=== PATIENT | female | born 1960 | race African-American/Black ===

== ENCOUNTER 2020-03-11 15:20 | Emergency (ER) | payer OTHER, SELFPAY ==
--- NOTE | 2020-03-11 | CT_ITS ---
PROCEDURE: CT ABDOMEN PELVIS WO/W CON CLINICAL INDICATION: ABD PAIN Abdominal, left upper quadrant COMPARISON: No exams were available for comparison TECHNIQUE: IV Contrast: 75ML OPTIRAY 350 Oral Contrast 20ml Gastroview Axial images obtained with sagittal and coronal reformats. All CT scans at the facility use one or more dose reduction, viz: automated exposure control, ma/kV adjustment per patient size (including targeted exams where dose is matched to indication, i.e. head), or iterative reconstruction technique. FINDINGS: LOWER THORAX: No acute finding ABDOMEN & PELVIS: There is mildly prominent right hepatic lobe measuring 23 cm cephalad caudad. No focal liver lesion is evident. Gallbladder, spleen, pancreas, adrenal glands, and kidneys have an unremarkable appearance. No intestinal obstruction or free air. No evidence of appendicitis or diverticulitis. There are few scattered colonic diverticula.. No acute bony anomalies. IMPRESSION: 1. No acute finding. 2. Mild hepatomegaly 3. Scattered colonic diverticula. No evidence of diverticulitis. Dictated by: Rc Lewis MD 03/12/2020 11:11 Electronically signed by Rc Lewis MD in [place] 03/12/2020 11:11
--- NOTE | 2020-03-11 15:42 | XR_ITS ---
PROCEDURE: XR RIBS LT MIN 3V W CXR1V CLINICAL INDICATION: pain Left-sided chest pain, smoker COMPARISON: CT ANGIO CHEST from 03/11/2020 FINDINGS: Unremarkable cardiovascular structures. There is evidence of old granulomatous disease. Minimal atelectatic or fibrotic changes are present in the left lower lung zone. Multiple views of the left ribs show no acute finding. IMPRESSION: No acute findings. Dictated by: Rc Lewis MD 03/12/2020 05:43 Electronically signed by Rc Lewis MD in [place] 03/12/2020 05:43
[2020-03-11 15:49] VITALS: BP 206/114; PULSE 85; RESP 19; TEMP 36.8; O2SAT 97; BMI 34.7
--- NOTE | 2020-03-11 15:54 | HMH.EDUTC ---
[facility] [place] Condition on Discharge: Good Time of Disposition: 16:50 <LopezJuanita turner E - Last Filed: 03/11/20 16:51> Condition on Discharge: Good <Kvng Ojeda - Last Filed: 03/11/20 19:12> Clinical Impression: Pain, Granuloma due to infection Disposition: Home, Self-Care Referrals: Merry Santana PA [Primary Care Provider] - As needed Medical Decision Making - John Inquiry Pt receiving controlled substance: No John was queried for this patient: No - Radiology Data #1 Image(s): Chest, Other (left ribs) Image Reviewed: Yes I reviewed the patient's radiology image w/the ED provider - Reevaluation(s) Time: 16:10 <LopezMagy - Last Filed: 03/11/20 16:51> - Lab Data Result diagrams: 03/11/20 17:00 03/11/20 17:00 - CT Data CT Scan: Chest Time Received: 19:00 Preliminary Findings: Abnormal (Patient has granuloma negative for neoplasm or any sort of viral or bacterial pathology) <Kvng Ojeda - Last Filed: 03/11/20 19:12> Vital Signs: 03/11/20 15:49 03/11/20 16:51 Temperature 98.2 F Temperature Source Oral Pulse Rate [Radial] 85 80 Respiratory Rate 19 16 Blood Pressure [Right Arm] 206/114 H Blood Pressure Mean [Right Arm] 144 Blood Pressure Source [Right Arm] Automatic Cuff Blood Pressure Position [Right Arm] Sitting 02 Sat by Pulse Oximetry 97 100 Oxygen Delivery Method Room Air - Lab Data Lab Results 03/11/20 17:00: Urine Color Yellow, Urine Appearance Clear, Urine pH 6.0, Ur Specific Mulga >= 1.030, Urine Protein Negative, Urine Glucose (UA) Negative, Urine Ketones Negative, Urine Blood Negative, Urine Nitrate Negative, Urine Bilirubin Negative, Urine Urobilinogen 0.2, Ur Leukocyte Esterase Negative, Urine WBC Occasional, Ur Squamous Epith Cells 10-20, Amorphous Sediment Trace, Urine Mucus Trace 03/11/20 17:00: WBC 6.8, RBC 4.43, Hgb 14.7, Hct 42.6, MCV 96.2, MCH 33.2 H, MCHC 34.5, RDW 14.6, Plt Count 200, MPV 10.0, Neut % (Auto) 56.7, Lymph % (Auto) 31.2, Sheridan % (Auto) 5.2, Eos % (Auto) 4.6, Baso % (Auto) 2.3 H, Neut # (Auto) 3.9, Lymph # (Auto) 2.1, Sheridan # (Auto) 0.4, Eos # (Auto) 0.3, Baso # (Auto) 0.2 03/11/20 17:00: Sodium 140, Potassium 4.8, Chloride 101, Carbon Dioxide 29, Anion Gap 14.8, BUN 23 H, Creatinine 0.80, Estimated Creat Clear 124, Estimated GFR 73, Est GFR ( Amer) 89, Glucose 95, Calcium 10.1, Total Bilirubin 0.7, AST 53 H, ALT 32, Alkaline Phosphatase 58, Total Protein 8.4 H, Albumin 4.6, Globulin 3.8 H, Albumin/Globulin Ratio 1.2 Orders (Tests/Meds): ED MEDICATIONS Discontinued Medications Generic Name Dose Route Start Last Admin Trade Name Freq PRN Reason Stop Dose Admin Ioversol 70 ml 03/11/20 18:14 03/11/20 18:15 Rad-Optiray 350 100ml Vial IV 03/11/20 18:15 70 ml ONCE ONE Administration Protocol Sodium Chloride 50 ml 03/11/20 18:14 03/11/20 18:15 Rad-Ns 50ml Vial IV 03/11/20 18:15 50 ml ONCE ONE Administration Sodium Chloride 10 ml 03/11/20 18:14 03/11/20 18:15 Rad-Saline Flush 10ml Syringe IV 03/11/20 18:15 10 ml ONCE ONE Administration ORDERS Category Date Time Status CT abdomen pelvis w con Stat Cat Scan 03/11/20 17:[address] abdomen pelvis wo con Stat Cat Scan 03/11/20 17:[address] angio chest Stat Cat Scan 03/11/20 17:[address] chest wo con Stat Cat Scan 03/11/20 17:00 Taken XR ribs LT min 3V w CXR1V Stat Exams 03/11/20 15:42 Taken - Radiology Data #1 mass noted patient to be sent to ER for CT of chest and further evaluation (Juanita Lopez) - Reevaluation(s) Reevaluation #1: Patient educated on importance of keeping appointments with PCP and taking medication for HTN patient educated that uncontrolled HTN can lead to stroke, DC and even . Patient verbalized understanding (Juanita Lopez) Medical Decision Narrative: Patient xray complete, upon looking at xray noticed suspicious area patient was discussed with Dr Ojeda and he viewed xray a
[2020-03-11 16:51] VITALS: PULSE 80; RESP 16; O2SAT 100; BMI 34.7
--- NOTE | 2020-03-11 17:00 | CT_ITS ---
PROCEDURE: CT ANGIO CHEST CLINCIAL INDICATION: pain Left-sided chest, pain under the breast COMPARISON: No exams were available for comparison TECHNIQUE: IV Contrast: 70ML OPTIRAY 350 Axial images obtained with sagittal and coronal reformats. All CT scans at the facility use one or more dose reduction, viz: automated exposure control, ma/kV adjustment per patient size (including targeted exams where dose is matched to indication, i.e. head), or iterative reconstruction technique. FINDINGS: HEART AND MEDIASTINAL STRUCTURES: No evidence of pulmonary embolus, aortic aneurysm, or dissection. There is some minimal calcification of the coronary arteries. LUNGS AND PLEURAL SPACES: Calcified granuloma right lower lobe with mild atelectatic or fibrotic change in the lingula.. Calcified nodes are present in the subcarinal region. Hyperinflation with attenuation of the peripheral pulmonary vessels suggesting COPD/small airway disease BONY STRUCTURES: No acute bony abnormalities apparent. UPPER ABDOMEN: Unremarkable. ADDITIONAL FINDINGS: No other significant abnormalities. IMPRESSION: 1. No acute finding. No evidence of pulmonary embolus. 2. COPD/small airway disease with chronic changes Dictated by: Rc Lewis MD 03/12/2020 10:59 Electronically signed by Rc Lewis MD in [place] 03/12/2020 10:59
--- NOTE | 2020-03-11 17:00 | CT_ITS ---
PROCEDURE: CT CHEST WO CON CLINICAL INDICATION: pain Left-sided chest pain, pain under left breast COMPARISON: CT ANGIO CHEST from 03/11/2020 TECHNIQUE: Axial images obtained with sagittal and coronal reformats. All CT scans at the facility use one or more dose reduction, viz: automated exposure control, ma/kV adjustment per patient size (including targeted exams where dose is matched to indication, i.e. head), or iterative reconstruction technique. FINDINGS: HEART AND MEDIASTINAL STRUCTURES: Unremarkable. LUNGS AND PLEURAL SPACES: Old granulomatous disease. No lobar consolidation or collapse. Minimal fibrotic or atelectatic changes in the lingula. BONY STRUCTURES: No acute bony abnormalities apparent. UPPER ABDOMEN: Unremarkable. ADDITIONAL FINDINGS: No other significant abnormalities. IMPRESSION: No acute finding Dictated by: Rc Lewis MD 03/12/2020 10:38 Electronically signed by Rc Lewis MD in [place] 03/12/2020 10:38
[2020-03-11 17:07] LABS: Microscopic, Urine URINE MICROSCOPIC (MICROSCOPIC)
[2020-03-11 17:10] LABS: Basophils # 0.2 K/mm3 (0-0.2); Basophils % 2.3 % (0.1-2.0); Eosinophils # 0.3 K/mm3 (0.0-0.4); Eosinophils % 4.6 % (0.1-12.0); Hematocrit 42.6 % (37.0-47.0); Hemoglobin 14.7 g/dL (12.2-16.2); Lymphocytes # 2.1 K/mm3 (0.7-4.5); Lymphocytes % 31.2 % (10-50); Mean Corpuscular HGB Conc 34.5 g/dL (31.8-35.4); Mean Corpuscular Hemoglobin 33.2 pg (27.0-31.2); Mean Corpuscular Volume 96.2 fl (81-99); Monocytes # 0.4 K/mm3 (0.1-1.0); Monocytes % 5.2 % (1.7-9.3); Neutrophils # 3.9 K/mm3 (1.8-7.8); Neutrophils % 56.7 % (37.0-80.0); Platelet Count 200 K/mm3 (142-424); Red Blood Count 4.43 M/mm3 (4.20-5.40); Red Cell Distribution Width 14.6 % (11.5-17.5); White Blood Count 6.8 K/mm3 (4.8-10.8)
[2020-03-11 17:26] LABS: Appearance,Urine CLEAR (Clear); Bilirubin,Urine Negative (Negative); Blood, Urine Negative (Negative); Chloride 101 mmol/L (98-107); Color,Urine YELLOW (Yellow); Glucose,Urine (UA) Negative (Negative); Ketones,Urine Negative (Negative); Leukocyte Esterase,Urine Negative (Negative); Nitrate,Urine Negative (Negative); Protein,Urine Negative (Negative); Sodium 140 mmol/L (136-145); Specific Gravity, Urine >= 1.030 (1.005-1.030); Urobilinogen,Urine 0.2 EU/dl (0.2)
[2020-03-11 17:27] LABS: Potassium 4.8 mmoL/L (3.5-5.1)
[2020-03-11 17:29] LABS: Alanine Aminotransferase 32 U/L (12-78); Albumin Level 4.6 g/dl (3.5-5.0); Albumin/Globulin Ratio 1.2 (1.1-1.8); Alkaline Phosphatase 58 U/L (38-126); Anion Gap 14.8 mEq/L (5-15); Aspartate Amino Transferase 53 U/L (14-36); Bilirubin,Total 0.7 mg/dl (0.2-1.3); Blood Urea Nitrogen 23 mg/dl (7-17); Carbon Dioxide 29 mmol/L (22.0-30.0); Creatinine Clearance Estimated 124 mL/min (50-200); Estimated Glomerular Filt Rate 73 ml/min (>60); GFR (African American) 89 ML/MIN (>60); Globulin 3.8 g/dL (1.3-3.2); Total Protein,Serum 8.4 g/dl (6.3-8.2)
[2020-03-11 17:30] LABS: Amorphous Sediment,Urine Trace /lpf; Calcium 10.1 mg/dl (8.4-10.2); Glucose 95 mg/dl (74-100); Mucus,Urine Trace /lpf; WBC,Urine Occasional #/hpf (0-3)
[2020-03-11 19:29] VITALS: BP 192/97; PULSE 80; RESP 16; TEMP 36.8; O2SAT 97
== END 2020-03-11 19:31 | disposition home or self-care (01) ==
LOC: UTC 16:19 → ER 16:46
PROVIDERS: Emergency Provider Family Medicine; PCP Physician Assistant
DX: R07.89 Other chest pain (principal); F17.210 Nicotine dependence, cigarettes, uncomplicated
CPT/HCPCS: 71101; 71250; 71275; 74176; 74177; 74178; 80053; 81001; 85025; 99283; Q9967

== ENCOUNTER → 2020-11-20 14:50 | Outpatient (CLI) | payer OTHER, SELFPAY ==
[2020-11-22 11:37] LABS: Covid-19 Nasal PCR Sendout P&C NEGATIVE
== END ==
PROVIDERS: PCP Physician Assistant; Visit Provider Nurse Practitioner Family
DX: Z11.52 Encounter for screening for COVID-19 (principal)
CPT/HCPCS: U0004

== ENCOUNTER → 2021-08-05 10:07 | Outpatient (CLI) | payer BC, SELFPAY ==
[2021-08-05 11:55] LABS: Anion Gap 14.5 mEq/L (5-15); Blood Urea Nitrogen 41 mg/dl (7-17); Calcium 10.3 mg/dl (8.4-10.2); Carbon Dioxide 27 mmol/L (22.0-30.0); Chloride 104 mmol/L (98-107); Estimated Glomerular Filt Rate 35 ml/min (>60); GFR (African American) 43 ML/MIN (>60); Glucose 106 mg/dl (74-100); Potassium 4.5 mmoL/L (3.5-5.1); Sodium 141 mmol/L (136-145)
== END ==
PROVIDERS: Visit Provider Physician Assistant
DX: R79.89 Other specified abnormal findings of blood chemistry (principal)
CPT/HCPCS: 36415; 80048

== ENCOUNTER → 2021-09-13 10:47 | Outpatient (CLI) | payer BC, SELFPAY | LOC: SL 10:49 | PROVIDERS: PCP Physician Assistant; Visit Provider Physician Assistant | DX: G47.33 Obstructive sleep apnea (adult) (pediatric) (principal); G47.10 Hypersomnia, unspecified; R06.83 Snoring | CPT/HCPCS: G0399 ==

== ENCOUNTER → 2021-10-14 11:05 | Outpatient (POV) | payer BC, SELFPAY ==
[2021-10-14 12:09] LABS: Microscopic, Urine URINE MICROSCOPIC (MICROSCOPIC)
[2021-10-14 12:33] LABS: Basophils # 0.1 K/mm3 (0-0.2); Basophils % 1.1 % (0.1-2.0); Eosinophils # 0.3 K/mm3 (0.0-0.4); Eosinophils % 4.7 % (0.1-12.0); Hematocrit 42.5 % (37.0-47.0); Hemoglobin 14.1 g/dL (12.2-16.2); Lymphocytes # 2.5 K/mm3 (0.7-4.5); Lymphocytes % 34.1 % (10-50); Mean Corpuscular HGB Conc 33.2 g/dL (31.8-35.4); Mean Corpuscular Hemoglobin 33.8 pg (27.0-31.2); Mean Corpuscular Volume 101.9 fl (81-99); Mean Platelet Volume 9.6 fl (7.4-10.4); Monocytes # 0.3 K/mm3 (0.1-1.0); Monocytes % 4.7 % (1.7-9.3); Neutrophils % 55.3 % (37.0-80.0); Platelet Count 239 K/mm3 (142-424); Red Blood Count 4.18 M/mm3 (4.20-5.40); Red Cell Distribution Width 15.1 % (11.5-17.5); White Blood Count 7.3 K/mm3 (4.8-10.8)
[2021-10-14 13:26] LABS: Appearance,Urine CLEAR (Clear); Bilirubin,Urine Negative (Negative); Blood, Urine Negative (Negative); Color,Urine YELLOW (Yellow); Glucose,Urine (UA) Negative (Negative); Ketones,Urine Negative (Negative); Leukocyte Esterase,Urine TRACE (Negative); Nitrate,Urine Negative (Negative); Protein,Urine Negative (Negative); Specific Gravity, Urine >= 1.030 (1.005-1.030); Urobilinogen,Urine 0.2 EU/dl (0.2)
[2021-10-14 13:29] LABS: Albumin Level 4.4 g/dl (3.5-5.0); Anion Gap 7.9 mEq/L (5-15); Blood Urea Nitrogen 20 mg/dl (7-17); Calcium 9.8 mg/dl (8.4-10.2); Carbon Dioxide 32 mmol/L (22.0-30.0); Chloride 105 mmol/L (98-107); Estimated Glomerular Filt Rate 56 ml/min (>60); GFR (African American) 68 ML/MIN (>60); Glucose 106 mg/dl (74-100); Phosphorous 3.4 mg/dl (2.5-4.5); Potassium 3.9 mmoL/L (3.5-5.1); Sodium 141 mmol/L (136-145)
[2021-10-14 13:42] LABS: Intact Parathyroid Hormone 90.8 pg/mL (7.5-53.5)
[2021-10-14 13:43] LABS: Creatinine,Urine Random 206 mg/dL (Not Estab.)
[2021-10-14 14:45] LABS: Squamous Epithelial Cell,Urine Occasional #/hpf (0-5)
[2021-10-14 22:48] LABS: 25-OH Vitamin D, Total 90.6 ng/mL (30-100)
== END ==
PROVIDERS: Visit Provider Internal Medicine Nephrology
DX: N18.30 Chronic kidney disease, stage 3 unspecified (principal); E55.9 Vitamin D deficiency, unspecified
CPT/HCPCS: 36415; 80069; 81001; 82306; 82570; 83970; 84155; 85025

== ENCOUNTER → 2021-11-29 11:48 | Outpatient (CLI) | payer BC, SELFPAY | PROVIDERS: Visit Provider Nurse Practitioner | DX: Z20.822 Contact with and (suspected) exposure to COVID-19 (principal) | CPT/HCPCS: C9803; U0003; U0005 ==

== ENCOUNTER → 2022-03-10 10:44 | Outpatient (CLI) | payer BC, SELFPAY ==
--- NOTE | 2022-03-10 10:48 | US_ITS ---
FINAL REPORT TECHNIQUE: Ultrasound images of the kidneys and bladder were obtained. CLINICAL HISTORY: STAGE 3A CHRONIC KIDNEY DISEASE FINDINGS: The right kidney measures 9.4 cm in length. It is normal in echogenicity. There is no hydronephrosis. The left kidney measures 9.4 cm in length. It is normal in echogenicity. There is no hydronephrosis. IMPRESSION: Remarkable renal ultrasound. Reviewed, Interpreted and Dictated by Александр Hobson III, MD Transcribed by Brandie Link Authenticated by Александр Hobson III, MD on 03/10/2022 04:38:02 PM [facility]
== END ==
LOC: RAD 10:44
PROVIDERS: PCP Physician Assistant; Visit Provider Internal Medicine Nephrology
DX: N18.31 Chronic kidney disease, stage 3a (principal)
CPT/HCPCS: 76770

== ENCOUNTER → 2022-04-11 09:52 | Outpatient (CLI) | payer BC, SELFPAY ==
[2022-04-11 10:27] LABS: Basophils # 0.1 K/mm3 (0-0.2); Basophils % 1.7 % (0.1-2.0); Eosinophils # 0.4 K/mm3 (0.0-0.4); Hematocrit 47.9 % (37.0-47.0); Hemoglobin 15.2 g/dL (12.2-16.2); Lymphocytes # 2.2 K/mm3 (0.7-4.5); Mean Corpuscular HGB Conc 31.7 g/dL (31.8-35.4); Mean Corpuscular Hemoglobin 33.3 pg (27.0-31.2); Mean Corpuscular Volume 105.2 fl (81-99); Mean Platelet Volume 10.1 fl (7.4-10.4); Monocytes # 0.3 K/mm3 (0.1-1.0); Neutrophils # 3.6 K/mm3 (1.8-7.8); Neutrophils % 54.4 % (37.0-80.0); Platelet Count 236 K/mm3 (142-424); Red Blood Count 4.55 M/mm3 (4.20-5.40); Red Cell Distribution Width 14.5 % (11.5-17.5); White Blood Count 6.6 K/mm3 (4.8-10.8)
[2022-04-11 10:34] LABS: Creatinine,Urine Random 148 mg/dL (Not Estab.)
[2022-04-11 10:50] LABS: Alanine Aminotransferase 30 U/L (12-78); Albumin Level 4.4 g/dl (3.5-5.0); Albumin/Globulin Ratio 1.4 (1.1-1.8); Alkaline Phosphatase 76 U/L (38-126); Anion Gap 14.7 mEq/L (5-15); Aspartate Amino Transferase 38 U/L (14-36); Blood Urea Nitrogen 37 mg/dl (7-17); Calcium 10.3 mg/dl (8.4-10.2); Carbon Dioxide 27 mmol/L (22.0-30.0); Chloride 105 mmol/L (98-107); Chol/HDL Ratio 4.9 (1-3.5); Cholesterol 222 mg/dl (140-200); Estimated Glomerular Filt Rate 38 ml/min (>60); GFR (African American) 46 ML/MIN (>60); Globulin 3.1 g/dL (1.3-3.2); Glucose 109 mg/dl (74-100); HDL Cholesterol 45 mg/dl (40-60); Potassium 4.7 mmoL/L (3.5-5.1); Sodium 142 mmol/L (136-145); Total Protein,Serum 7.5 g/dl (6.3-8.2)
[2022-04-11 10:52] LABS: Phosphorous 4.3 mg/dl (2.5-4.5)
[2022-04-11 11:00] LABS: Bilirubin,Total 0.1 mg/dl (0.2-1.3); Triglycerides 402 mg/dl (30-150)
[2022-04-11 11:02] LABS: Direct LDL Cholesterol 94.13 mg/dL (100-129)
[2022-04-11 11:15] LABS: 25-OH Vitamin D, Total > 126 ng/mL (30-100)
== END ==
PROVIDERS: PCP Physician Assistant; Visit Provider Internal Medicine Nephrology
DX: N18.31 Chronic kidney disease, stage 3a (principal); N18.9 Chronic kidney disease, unspecified; E79.0 Hyperuricemia without signs of inflammatory arthritis and tophaceous disease; E55.9 Vitamin D deficiency, unspecified; E66.9 Obesity, unspecified; Z68.30 Body mass index [BMI] 30.0-30.9, adult
CPT/HCPCS: 36415; 80053; 80061; 82043; 82306; 82570; 84100; 84443; 84550; 85025

== ENCOUNTER → 2022-10-15 13:58 | Outpatient (CLI) | payer BC, SELFPAY ==
--- NOTE | 2022-10-15 14:03 | XR_ITS ---
FINAL REPORT CLINICAL HISTORY: Lt knee pain FINDINGS: Three views of the left knee reveal no evidence of fracture or dislocation. The bony alignment is normal. There are mild and moderate degenerative changes and medial compartment narrowing. There are numerous loose bodies in the joint and suprapatellar bursa measuring up to 23 mm. There is no evidence of joint effusion. IMPRESSION: Mild and moderate degenerative changes with medial compartment joint space narrowing. There is loose bodies in the joint and suprapatellar bursa. Reviewed, Interpreted and Dictated by Александр Hobson III, MD Transcribed by Enedelia Ramires Authenticated and [facility]
== END ==
PROVIDERS: PCP Physician Assistant; Visit Provider Orthopaedic Surgery
DX: M25.562 Pain in left knee (principal)
CPT/HCPCS: 73562

== ENCOUNTER → 2022-11-10 08:26 | Outpatient (CLI) | payer BC, SELFPAY ==
--- NOTE | 2022-11-10 08:30 | US_ITS ---
FINAL REPORT CLINICAL HISTORY: DUB FINDINGS: Transvaginal Ultrasound Technique: Transvaginal sonographic images of the pelvis were obtained. Findings: The uterus is normal in size. Sub endometrial fibroid versus polyp measuring up to 15 mm. Few subendometrial calcifications probably related to fibroids. Other portions of the endometrial stripe are unremarkable measuring up to 7 mm. Ovaries are not identified. IMPRESSION: Subendometrial fibroid versus polyp. Recommend gynecologic evaluation. Reviewed, Interpreted and Dictated by Berry Khan MD Transcribed by Allan Chahal Authenticated and . [facility]
== END ==
LOC: RAD 08:27
PROVIDERS: PCP Physician Assistant; Visit Provider Physician Assistant
DX: N93.8 Other specified abnormal uterine and vaginal bleeding (principal)
CPT/HCPCS: 76830

== ENCOUNTER → 2022-12-05 10:12 | Outpatient (CLI) | payer BC, SELFPAY ==
[2022-12-05 11:38] LABS: Albumin Level 4.2 g/dl (3.5-5.0); Anion Gap 9.3 mEq/L (5-15); Blood Urea Nitrogen 29 mg/dl (7-17); Calcium 9.4 mg/dl (8.4-10.2); Carbon Dioxide 30 mmol/L (22.0-30.0); Chloride 105 mmol/L (98-107); Estimated Glomerular Filt Rate 50 ml/min (>60); GFR (African American) 61 ML/MIN (>60); Glucose 94 mg/dl (74-100); Phosphorous 3.6 mg/dl (2.5-4.5); Potassium 4.3 mmoL/L (3.5-5.1); Sodium 140 mmol/L (136-145)
[2022-12-05 11:56] LABS: 25-OH Vitamin D, Total 68.6 ng/mL (30-100)
== END ==
PROVIDERS: PCP Physician Assistant; Referring Provider Internal Medicine Nephrology; Visit Provider Obstetrics & Gynecology
DX: I10 Essential (primary) hypertension (principal); N18.32 Chronic kidney disease, stage 3b; M10.30 Gout due to renal impairment, unspecified site
CPT/HCPCS: 36415; 80069; 82306

== ENCOUNTER → 2022-12-08 12:34 | Outpatient (POV) | payer BC, SELFPAY | PROVIDERS: Visit Provider Internal Medicine Nephrology | DX: Z00.00 Encounter for general adult medical examination without abnormal findings (principal) ==

== ENCOUNTER → 2023-01-05 09:33 | Outpatient (CLI) | payer BC, SELFPAY ==
[2023-01-05 09:58] LABS: Basophils # 0.1 K/mm3 (0-0.2); Basophils % 0.7 % (0.1-2.0); Eosinophils # 0.2 K/mm3 (0.0-0.4); Eosinophils % 2.5 % (0.1-12.0); Hematocrit 42.8 % (37.0-47.0); Hemoglobin 13.5 g/dL (12.2-16.2); Lymphocytes # 2.1 K/mm3 (0.7-4.5); Mean Corpuscular HGB Conc 31.4 g/dL (31.8-35.4); Mean Corpuscular Volume 105.1 fl (81-99); Mean Platelet Volume 9.4 fl (7.4-10.4); Monocytes # 0.4 K/mm3 (0.1-1.0); Monocytes % 4.7 % (1.7-9.3); Neutrophils # 5.4 K/mm3 (1.8-7.8); Neutrophils % 66.1 % (37.0-80.0); Platelet Count 236 K/mm3 (142-424); Red Blood Count 4.07 M/mm3 (4.20-5.40); Red Cell Distribution Width 16.1 % (11.5-17.5); White Blood Count 8.2 K/mm3 (4.8-10.8)
[2023-01-05 10:23] LABS: Chloride 110 mmol/L (98-107); Sodium 142 mmol/L (136-145)
[2023-01-05 10:24] LABS: Potassium 4.1 mmoL/L (3.5-5.1)
[2023-01-05 10:26] LABS: Alanine Aminotransferase 30 U/L (12-78); Alkaline Phosphatase 77 U/L (38-126); Aspartate Amino Transferase 34 U/L (14-36); Bilirubin,Total 0.4 mg/dl (0.2-1.3); Blood Urea Nitrogen 31 mg/dl (7-17); Estimated Glomerular Filt Rate 56 ml/min (>60); GFR (African American) 68 ML/MIN (>60)
[2023-01-05 10:27] LABS: Albumin Level 4.1 g/dl (3.5-5.0); Albumin/Globulin Ratio 1.3 (1.1-1.8); Anion Gap 6.1 mEq/L (5-15); Calcium 9.5 mg/dl (8.4-10.2); Carbon Dioxide 30 mmol/L (22.0-30.0); Globulin 3.1 g/dL (1.3-3.2); Glucose 98 mg/dl (74-100); Total Protein,Serum 7.2 g/dl (6.3-8.2)
== END ==
PROVIDERS: PCP Physician Assistant; Visit Provider Obstetrics & Gynecology
DX: R93.89 Abnormal findings on diagnostic imaging of other specified body structures (principal)
CPT/HCPCS: 36415; 80053; 85025

== ENCOUNTER 2023-01-09 06:04 | Day surgery (SDC) | payer BC, SELFPAY ==
[2023-01-07 13:37] VITALS: BMI 33.2
[2023-01-09] VITALS (10 sets, daily range): BP systolic 99–148; BP diastolic 62–96; PULSE 74–98; RESP 14–18; TEMP 36.3–37.1; O2SAT 94–100
--- NOTE | 2023-01-09 07:32 | EXP.ANES.CKL ---
[facility] Disclaimer: The information contained in this section may have been updated after the patient was seen, as this information can be updated by other users. Medical History Gout History of pacemaker Hypertension Postmenopausal bleeding Sleep apnea Thickened endometrium Tobacco user Surgical History History of section Family History Other Diabetes Social History Smoking Status: Current every day smoker tobacco type: cigarettes packs per day: 1 years smoked: 44 second hand exposure: Yes alcohol intake: current substance use type: denies use current occupational status: employed Travel in the last 8 weeks: None housing: house [facility] Anesthesia Checklist Patient Identification Patient Identification: Arm Band Structural Data Admitted From: Home Planned Operative Procedure/s: Hysteroscopy, D&C, Myosure Consent for Planned Operative Procedure(s) Verified: Yes Verified Documents: Surgical Consent and History and Physical NPO Status Verified Time NPO: 00:00 Additional verifications Anesthesia Reactions: No Hx Blood Transfusions: No Blood Transfusion Reaction: No Airway Assessment C-Spine Mobility Assessed: Yes TMJ Mobility Assessed: Yes Dentition: Good Dentition Neurological Assessment Level of Consciousness: Awake and Alert Anesthesia Plan Anesthesia Risk discussed: Yes Anesthesia Plan: Verified ASA Class: II Anesthesia Type: General
--- NOTE | 2023-01-09 08:07 | P.PNANES_ITS ---
[facility] Anesthesia Record Part I Anesthesia Record I Intake, IV Amount: 600 Estimated blood loss (mL): 0 Urine output (mL): 0 Blood Pressure: 99/62 SaO2: 99 Pulse Rate: 91 Respiratory Rate: 16 Temperature: 98.8 F Patient is:: Drowsy and Stable Stable to PACU at:: 08:05
--- NOTE | 2023-01-09 08:48 | SUR.PHASEI ---
0834- Detailed report called and given to Ita Joshi RN in post-op. 0835- Patient transported to post-op in stable condition. Left in care of WILNER Wilson. CULLENS.
--- NOTE | 2023-01-09 09:12 | P.OP_ITS ---
Date of procedure: 01/09/23 Pre-op Diagnosis:: 1. Postmenopausal bleeding 2. Thickened endometrium Post-op Diagnosis:: 1. Postmenopausal bleeding 2. Thickened endometrium Procedure performed:: Hysteroscopy, D&C with Myosure Surgeon:: Kiah Greenwood DO Detail Supervisor(s):: N/a [employer] SHE[employer] SUPERVISOR:: Eliud Gao Anesthesia: GETA Estimated blood loss (mL): 0 Clinical Note:: Ms Angelia Multani is a 62 yo P2002 who presents to [facility] for scheduled procedure. She complains of post menopausal bleeding. Last period was > 10 years ago. She started bleeding 10/24/22 and is still bleeding today. Admits it waxes and wanes but has not stopped. Pelvic ultrasound 11/10/22 demonstrated?sub endometrial fibroid versus polyp measuring up to 15 mm.? Few subendometrial calcifications probably related to fibroids.? Other portions of the endometrial stripe are unremarkable measuring up to 7 mm.? Ovaries were not identified. TSH 04/2022 was 1.70. Operative findings:: 1. On Bimanual exam uterus normal size and shape, midposition. No adnexal masses palpated 2. On hysteroscopic exam, bilateral tubal ostia easily visualized, uterine lesion present on anterior uterine wall. Suspect polyp or submucosal fibroid. Small calcifications noted around lesion. Operative note:: Risks, benefits and alternatives were discussed with the patient. Risks include but are not limited to bleeding, infection, uterine perforation and VTE. Patient voiced understanding and agreed to proceed. She was wheeled back to the operating room and placed under general anesthesia without difficulty. She was placed in dorsal lithotomy position and prepped and draped in the normal sterile fashion. Straight catheter was used to drain the bladder. A bimanual exam was performed. A weighted Auvard was placed in the vaginal vault. Single tooth tenaculum was placed on anterior lip of the cervix. Uterus sounded to 10. Sequential Ata dilators were used to dilate the cervical os. Hysteroscope was tested inserted through the cervix without difficulty. Endometrial cavity was evaluated. See findings above. Pictures were taken. Myosure device was inserted through the Hysteroscope. Myosure device was used per protocol to excise uterine lesion and to take a sample of the endometrium in a 360 degree fashion. Pictures were taken after removal of lesion and endometrial curettings with Myosure. Hysteroscope and Myosure was removed. Medium size sharp curette was inserted through the cervix into the uterine cavity. The endometrial cavity was curetted with a systemic [id number] movement of the curette so that all possible endometrium was sampled. All endometrial curettings will be sent to pathology for review. Patient was awaken from anesthesia without difficulty. She was transported to recovery room in stable condition. Patient will be discharged home when awake and ambulating. She was given postop instructions as well as instructions to follow-up in the office in 2 weeks. Condition: stable Disposition: same day Specimens:: Endometrial curettings Complications:: None
--- NOTE | 2023-01-09 09:14 | P.PNANES_ITS ---
[facility] Anesthesia Record Part II Anesthesia Record Part II Discharge Time: 08:35 Destination: Surgical Day Care (OP Surgery) PACU nurse assessment reviewed?: Yes Patient Condition:: Good Anesthesia Complications:: None Swallowing reflex intact?: Yes Cyanosis?: No Blood Pressure: 118/75 Pulse Rate: 77 Temperature: 97.4 F Mental Status: Alert & Oriented Pain level:: 0 Nausea and/or vomitting:: None Intake, IV Amount: 0
== END 2023-01-09 09:06 | disposition home or self-care (01) ==
PROVIDERS: PCP Physician Assistant; Visit Provider Obstetrics & Gynecology
PROC: (CPT 58558; principal; 2023-01-09 07:30)
DX: N95.0 Postmenopausal bleeding (principal); R93.89 Abnormal findings on diagnostic imaging of other specified body structures; F17.210 Nicotine dependence, cigarettes, uncomplicated; Z79.899 Other long term (current) drug therapy
CPT/HCPCS: 58558; 88305; 96374; J2405

== ENCOUNTER → 2023-07-23 14:07 | Outpatient (CLI) | payer BC, SELFPAY ==
--- NOTE | 2023-07-23 14:15 | XR_ITS ---
FINAL REPORT CLINICAL HISTORY: rt knee pain FINDINGS: Right knee Three views were obtained. There is no acute fracture or dislocation. There are mild degenerative changes. Small joint effusion is identified. IMPRESSION: Mild degenerative changes with small joint effusion. Reviewed, Interpreted and Dictated by Александр Hobson III, MD Transcribed by Brandie Link Authenticated and [facility]
== END ==
LOC: RAD 14:09
PROVIDERS: PCP Physician Assistant; Visit Provider Orthopaedic Surgery
DX: M25.561 Pain in right knee (principal)
CPT/HCPCS: 73562

== ENCOUNTER → 2023-09-28 14:06 | Outpatient (CLI) | payer BC, SELFPAY | LOC: RT 14:07 | PROVIDERS: PCP Physician Assistant; Visit Provider Physician Assistant | DX: M54.17 Radiculopathy, lumbosacral region (principal) | CPT/HCPCS: 93225 ==

== ENCOUNTER → 2023-11-05 12:44 | Outpatient (CLI) | payer BC, SELFPAY ==
--- NOTE | 2023-11-05 | CA_ITS ---
APPROVED REPORT EXAM: Comprehensive 2D, Doppler, and color-flow Echocardiogram Psych Coordinator: Nataliia Moreno RT(R) Ht: 5 ft 8 in Wt: 212lbs BSA: 2.10 BP: 135/90 mmHg Indications: SOA, HTN, smoker, abn holter, MARIA EUGENIA, ordered with definity. Echo Enhancing Agent Indication: Endocardial border delineation Agent(s) / Amount(s) Used: Definity 2 cc 2D Dimensions LVEF (Lopez's) 63.20 % F: 54 - 74 LV Volume 100.30 mL F: 46 - 106 LV Volume Index 47.8 mL/m2 F: 29 - 61 LA Volume 34.20 mL LA Volume Index 16.29 mL/m2 (M/F) 16-34 EF AP4 73.10 % EF AP2 53.9 % EF BP 63.2 % GL Strain -16.7 % M-Mode Dimensions RVDd 2.81 cm (0.9-2.6) LA Diam 3.47 cm (1.9-4.0) LVDd 4.07 cm (3.5-5.7) LVDs 3.08 cm (3.5-5.7) IVSd 1.03 cm (0.6-1.1) PWd 0.87 cm (0.6-1.1) EF (Teich) 48.80% FS 24.30% EDV (Teich) 72.90 mL ESV (Teich) 37.30 mL LV Diastology E Decel Time 150 (160-240 msec) E/A Ratio 0.7 Mitral Valve MV E Max Yon. 71.0 (40-130 cm/s) MV A Velocity 105.0 (40-130 cm/s) E/A Ratio 0.67 MV PHT 44.0 ms Left Ventricle The left ventricle is normal size. The left ventricular systolic function is normal. The left ventricular ejection fraction is within the normal range. There is increased LV wall thickness. There is normal LV segmental wall motion. Transmitral Doppler flow pattern suggests impaired LV relaxation. No left ventricular thrombus noted. LVEF is 65%. Right Ventricle Right ventricle is mildly dilated. The right ventricular systolic function is normal. Atria The left atrium size is normal. The right atrium size is normal. There is no Doppler evidence of interatrial shunt. Aortic Valve The aortic valve is mildly thickened. There is no aortic valvular stenosis. No aortic regurgitation is present. Mitral Valve The mitral valve is normal in structure. No evidence of mitral valve stenosis. Trace mitral regurgitation. Tricuspid Valve The tricuspid valve leaflets are thin and pliable. Trace tricuspid regurgitation. There is insufficient TR jet to estimate RVSP. Pulmonic Valve The pulmonary valve is normal in structure. Trace pulmonic regurgitation. Great Vessels The aortic root is normal in size. The ascending aorta is normal in size. The IVC is not well visualized. Pericardium There is no pericardial effusion. Other Information Study Quality: Fair Conclusion Normal biventricular systolic function. No significant valvular stenosis or regurgitation. Electronically signed by : Jania Dawn MD 11/07/2023 23:25:30
[2023-11-05] MEDS: DEFINITY US ECHO CONTRAST 2ML INJ 2 MG IV (13:55)
== END ==
LOC: RT 12:44
PROVIDERS: PCP Physician Assistant; Visit Provider Internal Medicine
DX: R06.00 Dyspnea, unspecified (principal); R94.31 Abnormal electrocardiogram [ECG] [EKG]; I10 Essential (primary) hypertension; I49.1 Atrial premature depolarization; Z72.0 Tobacco use
CPT/HCPCS: 93306; Q9957

== ENCOUNTER 2023-12-07 14:17 | Emergency (ER) | payer BC, SELFPAY ==
[2023-12-07 15:15] VITALS: BP 148/86; PULSE 89; RESP 18; TEMP 36.8; O2SAT 100; BMI 33.0
--- NOTE | 2023-12-07 15:18 | XR_ITS ---
FINAL REPORT CLINICAL HISTORY: FALL FINDINGS: A single view of the chest with 5 views of the ribs were obtained. Heart mediastinum within normal limits. There are nondisplaced fractures involving the right third through 10th ribs posteriorly. There is mild atelectasis. Lungs are otherwise clear. There is no pneumothorax. IMPRESSION: Nondisplaced fractures involving the right third through 10th ribs without pneumothorax. Reviewed, Interpreted and Dictated by Berry Khan MD Transcribed by Kailey Herrera Authenticated and [facility]
--- NOTE | 2023-12-07 15:39 | EXP.UTC ---
Discharge Plan Disposition Patient Disposition: Home, Self-Care Condition: Good Prescriptions Prescriptions: New lidocaine [Lidocaine Pain Relief] 4 % adhesive patch,medicated 1 patch topical DAILY PRN (Reason: pain) Qty: 10 0RF Rx Instructions: place 1 patch and leave on for 12 hours then remove patch and leave it off for 12 hours ibuprofen 600 mg tablet 600 mg PO Q6HP PRN (Reason: Moderate Pain) Qty: 20 0RF No Action atorvastatin 10 mg tablet 10 mg PO DAILY Patient Comments: TAKE 1 TABLET BY MOUTH ONCE DAILY FOR 90 DAYS metoprolol succinate 50 mg tablet extended release 24 hr 50 mg PO DAILY Patient Comments: TAKE 1 TABLET BY MOUTH ONCE DAILY lisinopril 20 mg tablet 20 mg PO DAILY Patient Comments: TAKE 1 TABLET BY MOUTH ONCE DAILY amlodipine 5 mg tablet 5 mg PO DAILY Patient Comments: TAKE 1 TABLET BY MOUTH ONCE DAILY allopurinol 100 mg tablet 100 mg PO DAILY Patient Comments: TAKE 2 TABLETS BY MOUTH ONCE DAILY FOR 90 DAYS Referrals Follow up/Referrals: Merry Santana PA [Primary Care Provider] - 12/09/23 10:30 am Activity Restrictions/Add. Instructions Additional Instructions/Restrictions: Follow up with your Family Doctor on 12/09/23 at 1030 as scheduled Make sure to use the incentive spirometer it may hurt when you use it but you need to use it as you was instructed in the [facility] you was also given the instructions included Use Lidocaine patches as prescribed place it in place and leave on for 12 hours then remove it for 12 hours Make sure that you are taking deep breaths this will help clear secretions from your lungs Place pillow over area if you cough it may help with the discomfort Make sure that you are up moving around this will help with your recovery Straight to ER if you have any life threatening symptoms, worsening of shortness of breath or chest pain Clinical Impressions Clinical Impression: Multiple rib fractures Qualifiers: Encounter type: initial encounter Fracture type: closed Laterality: right Qualified Code(s): S22.41XA - Multiple fractures of ribs, right side, initial encounter for closed fracture Stand Alone Forms Stand Alone Forms: Work/School Release Instructions Patient Instructions: Rib Fracture, DI for Rib Fracture, Lidocaine Transdermal Patch, Ibuprofen Discharge ED Provider: Juanita Lopez [facility] [place] HPI General Stated complaint: AO Pain in back from fall on 12/04 Mode of Arrival: Ambulatory Source of Information: Patient Limitations: No Limitations Time Seen by Provider: 12/07/23 15:39 Description of Symptoms (Recalled from Triage Doc. by RN): PATIENT C/O PAIN TO RIGHT BACK RIB AREA AFTER FALLING DOWN STAIRS ON THURSDAY HEENT Symptoms (Recalled from RN notes): No Resp Symptoms (Recalled from RN notes): No Skin Symptoms (Recalled from RN notes): No MS Symptoms (Recalled from RN notes): Yes Functional Status (Recalled from RN notes): WNL History of Present Illness Provider Complaint: Patient states that she was carrying stuff on steps on Thursday when she missed a step and fell back onto the steps and landed on her back right ribs States that since then she has been having pain in her back right ribs that is worse with movement and deep breath States that today it was still hurting bad her so she came in to get checked Related Data Home Medications Medication Instructions Recorded Confirmed allopurinol 100 mg tablet 100 mg PO DAILY 12/07/23 12/07/23 amlodipine 5 mg tablet 5 mg PO DAILY 12/07/23 12/07/23 atorvastatin 10 mg tablet 10 mg PO DAILY 12/07/23 12/07/23 lisinopril 20 mg tablet 20 mg PO DAILY 12/07/23 12/07/23 metoprolol succinate 50 mg 50 mg PO DAILY 12/07/23 12/07/23 tablet,extended release 24 hr Previous Rx's Medication Instructions Recorded ibuprofen 600 mg tablet 600 mg PO Q6HP PRN Moderate Pain 12/07/23 #20 tabs lidocaine 4 % topical patch 1 patch topical DAILY PRN pain #10 12/07/23 (Lidocaine Pain Relief) ea Allergies Allergy/AdvReac Type Severity Reaction Status Date / Time No Known Allergies Allergy Verified 11/24/23 09:44 Worker's Comp Is this a Worker's Comp case?: No [facility] Disclaimer: The information contained in this section may have been updated after the patient was seen, as this information can be updated by other users. Medical History Bilateral knee pain Gout History of pacemaker Hypertension Pain Postmenopausal bleeding Sleep apnea Thickened endometrium Tobacco user Surgical History H/O dilation and curettage History of section History of hysteroscopy Family History Family/Other Diabetes Hypertension Social History Smoking Status: Current every day smoker tobacco type: cigarettes packs per day: 1 years smoked: 44 second hand exposure: Yes alcohol intake: current substance use type: denies use current occupational status: employed Travel in the last 8 weeks: None housing: house ROS Obtained: Yes All systems reviewed & no additional complaints except as documented and Yes Systems reviewed as appropriate & no additional complaints except as documented Constitutional Constitutional: Reports system reviewed and no additional complaints, except as documented and Reports as per HPI ENT Ears, Nose, Mouth, and Throat: Reports system reviewed and no additional complaints, except as documented and Reports as per HPI Cardiovascular Cardiovascular: Reports system reviewed and no additional complaints, except as documented and Reports as per HPI Respiratory Respiratory: Reports system reviewed and no additional complaints, except as documented and Reports as per HPI Gastrointestinal Gastrointestingal: Reports system reviewed and no additional complaints, except as documented and as per HPI Musculoskeletal Musculoskeletal: Reports system reviewed and no additional complaints, except as documented and Reports as per HPI Comments: pain in back side of right ribs that is worse with movement since falling on Thursday on the steps Physical Exam General General appearance: alert and in no apparent distress Respiratory Respiratory exam: Present normal lung sounds bilaterally; Absent respiratory distress or wheezes Cardiovascular Cardiovascular exam: Present regular rate, normal rhythm and normal heart sounds Back Exam Back 1 view image: 1. reports pain with movement, contusion noted Neurological Exam Neurological exam: Present alert and oriented X3 Medical Decision Making John Inquiry Pt receiving controlled substance: No John was queried for this patient: No Vital Signs: 12/07/23 15:15 Temperature 98.3 F Temperature Source Oral Pulse Rate [Left Brachial] 89 Respiratory Rate 18 Blood Pressure [Left Arm] 148/86 H Blood Pressure Mean [Left Arm] 106 Blood Pressure Source [Left Arm] Automatic Cuff Blood Pressure Position [Left Arm] Sitting 02 Sat by Pulse Oximetry 100 Oxygen Delivery Method Room Air Orders (Tests/Meds): ORDERS Category Date Time Status XR ribs RT min 3V w CXR1V Stat Exams 12/07/23 15:18 Taken Radiology Data #1: Image(s): Chest (with right ribs) Medical Decision Narrative: Spoke with Dr Godoy at patients PCP office and informed him of xray finding, agreed will give lidocaine patches on for 12 hours then off for 12 hours, ibuprofen, incentive spirometer and have patient follow up in the office on Thu with PCP
[2023-12-07 16:17] VITALS: BP 148/86; PULSE 89; RESP 18; TEMP 36.8; O2SAT 100
--- NOTE | 2023-12-07 16:52 | PC.NURSE ---
PATIENT INSTRUCTED ON HOW TO USED INCENTIVE SPIROMETER. PATIENT VERBALIZED UNDERSTANDING AND CORRECTLY DEMONSTRATED USE TO STAFF
== END 2023-12-07 16:53 | disposition home or self-care (01) ==
PROVIDERS: Emergency Provider Nurse Practitioner; PCP Physician Assistant
DX: S22.41XA Multiple fractures of ribs, right side, initial encounter for closed fracture (principal); R07.81 Pleurodynia; W10.8XXA Fall (on) (from) other stairs and steps, initial encounter; F17.210 Nicotine dependence, cigarettes, uncomplicated; I10 Essential (primary) hypertension
CPT/HCPCS: 71101; 99204; 99212; G0463

== ENCOUNTER 2023-12-09 11:34 | Outpatient (CLI) | payer BC, SELFPAY ==
--- NOTE | 2023-12-09 11:41 | XR_ITS ---
FINAL REPORT CLINICAL HISTORY: MID BACK PAIN, fall 5 days ago, fx ribs on rt side FINDINGS: No fracture is seen. Alignment is normal. There is moderate diffuse degenerative disc disease. Moderate S-shaped scoliosis is seen as well as thoracic kyphosis. IMPRESSION: Degenerative change without acute bony abnormality. Reviewed, Interpreted and Dictated by Berry Khan MD Transcribed by Kailey Herrera Authenticated and [facility]
== END 2023-12-09 23:59 ==
LOC: RAD 11:34
PROVIDERS: PCP Physician Assistant; Visit Provider Physician Assistant
DX: M54.6 Pain in thoracic spine (principal); M54.9 Dorsalgia, unspecified
CPT/HCPCS: 72072

== ENCOUNTER 2024-01-01 12:07 | Outpatient (CLI) | payer BC, SELFPAY ==
--- NOTE | 2024-01-01 12:18 | XR_ITS ---
FINAL REPORT CLINICAL HISTORY: CLOSED FRACTURE OF MULTIPLE RIBS RIGHT SIDE COMPARISON: 12/07/2023 FINDINGS: A single view of the chest with 3 views of the ribs were obtained. There is no acute cardiopulmonary process. No pneumothorax is identified. There are mildly displaced posterior right second through 8 rib fractures. IMPRESSION: Minimally displaced posterior right second through 8 rib fractures. Reviewed, Interpreted and Dictated by Lazaro Le MD Transcribed by Kailey Herrera Authenticated and [facility]
== END 2024-01-01 23:59 ==
LOC: RAD 12:07
PROVIDERS: PCP Physician Assistant; Visit Provider Physician Assistant
DX: S22.41XD Multiple fractures of ribs, right side, subsequent encounter for fracture with routine healing (principal)
CPT/HCPCS: 71101

== ENCOUNTER 2024-01-27 12:22 | Outpatient (CLI) | payer BC, SELFPAY ==
--- NOTE | 2024-01-27 12:25 | XR_ITS ---
FINAL REPORT TECHNIQUE: Right ribs 5 views CLINICAL HISTORY: CLOSED FX OF RT RIBS COMPARISON: 01/01/2024 FINDINGS: RIGHT RIBS: There are fractures of the right posterolateral third through ninth ribs again noted. Once again no evidence of pneumothorax is seen. No new fractures of the ribs are identified. Mild bibasilar atelectasis is present. IMPRESSION: Right posterolateral third through ninth rib fractures again noted, stable since the prior exam of January 01. Reviewed, Interpreted and Dictated by Александр Hobson III, MD Transcribed by Ria Whalen Authenticated and [facility]
== END 2024-01-27 23:59 ==
LOC: RAD 12:23
PROVIDERS: PCP Physician Assistant; Visit Provider Physician Assistant
DX: R07.81 Pleurodynia (principal); S22.41XA Multiple fractures of ribs, right side, initial encounter for closed fracture
CPT/HCPCS: 71101

== ENCOUNTER 2024-03-09 10:11 | Outpatient (CLI) | payer BC, SELFPAY ==
--- NOTE | 2024-03-09 10:15 | XR_ITS ---
FINAL REPORT CLINICAL HISTORY: closed fx of multiple ribs, rt side COMPARISON: 01/27/2024 FINDINGS: A single view of the chest with 3 views of the ribs were obtained. There is no acute cardiopulmonary process. Fractures are again identified of the right 3rd through 8th ribs. Callus formation is seen at the fracture sites. Displacement is similar to previous. There is no pleural fluid collection or pneumothorax. IMPRESSION: Early healing fractures of multiple right ribs without further displacement. Reviewed, Interpreted and Dictated by Berry Khan MD Transcribed by Brandie Link Authenticated and [facility]
== END 2024-03-09 23:59 | disposition home or self-care (01) ==
LOC: RAD 10:12
PROVIDERS: PCP Physician Assistant; Visit Provider Physician Assistant
DX: R07.81 Pleurodynia (principal); S22.41XD Multiple fractures of ribs, right side, subsequent encounter for fracture with routine healing
CPT/HCPCS: 71101

== ENCOUNTER 2025-07-18 11:41 | Outpatient (CLI) | payer BC, SELFPAY ==
--- NOTE | 2025-07-18 11:42 | XR_ITS ---
FINAL REPORT CLINICAL HISTORY: left knee pain COMPARISON: 10/15/2022 FINDINGS: AP, lateral and oblique views of the left knee were obtained. There is no prior exam for comparison. There is no acute osseous abnormality of the left knee. There is degenerative joint disease, most pronounced in the medial compartment. Findings have progressed since prior. 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 Small joint effusion is identified. IMPRESSION: Degenerative joint disease. 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 Small joint effusion. Reviewed, Interpreted and Dictated by Flory Hall MD Transcribed by Brandie Link Authenticated and [facility]
--- NOTE | 2025-07-18 11:42 | XR_ITS ---
FINAL REPORT CLINICAL HISTORY: right knee pain COMPARISON: 07/23/2023 FINDINGS: RIGHT KNEE Three views were obtained. There is no fracture or dislocation. There is degenerative joint disease, most pronounced in the medial compartment. Findings are unchanged from prior. No soft tissue abnormality is identified. IMPRESSION: Degenerative joint disease. Reviewed, Interpreted and Dictated by Flory Hall MD Transcribed by Brandie Link Authenticated and . [facility]
--- OUTSIDE RECORDS SUMMARY | 2025-07-18 11:47 | XMS_ITS | Clinical Summary ---
Author Organization Healthcare Address [address] [place] [address] Care Team Providers Care Family Counselor Name Role Phone Merry Santana Primary Care Provider [phone] Allergies No known active allergies Medications allopurinol (Zyloprim) 100 MG tablet Take 100 mg by mouth 2 (two) times a day. Active naltrexone-buPRO Pion ER (Contrave) 8-90 MG ER tablet Take by mouth. Active alpha tocopherol (Vitamin E) 400 units capsule Take by mouth 1 (one) time each day. Active cholecalciferol (D3-5) 5,000 Units tablet Take by mouth 1 (one) time each day. Active metoprolol succinate XL (Toprol-XL) 50 MG 24 hr tablet Take 50 mg by mouth 1 (one) time each day. Do not crush or chew. Active amLODIPine (Norvasc) 5 MG tablet Take by mouth 1 (one) time each day. Active lisinopril 20 MG tablet Take 20 mg by mouth 1 (one) time each day. Active ASHWAGANDHA PO Take by mouth. Active Multiple Vitamin (multivitamin) tablet Take 1 tablet by mouth 1 (one) time each day. Active Turmeric 500 MG capsule Take by mouth. Active cyanocobalamin (Vitamin B-12) 1000 MCG tablet Take 1,000 mcg by mouth 1 (one) time each day. Active BLACK COHOSH PO Take by mouth. Active Family History Medical History Relation Name Comments Diabetes Father amputee Father Relation Name Status Comments Father Mother Social History Tobacco Use Types Packs/Day Years Used Date Smoking Tobacco: Every Day Cigarettes Smokeless Tobacco: Never Tobacco Cessation:Ready to Q uit: Not Asked; Counseling Given: Not Answered Comments Unknown Sex and Gender Information Value Date Recorded Sex Assigned at Not on file Legal Sex Female 2:23 PM EDT Gender Identity Not on file Sexual Orientation Not on file Last Filed Vital Signs Vital Sign Reading Time Taken Comments Blood Pressure 148/91 12/08/2022 1:00 PM EST Pulse 76 12/08/2022 1:00 PM EST Temperature - - Respiratory Rate - - Oxygen Saturation - - Inhaled Oxygen Concentration - - Weight 100 kg (221 lb) 12/08/2022 1:00 PM EST Height - - Body Mass Index - - Plan of Treatment Health Maintenance Due Date Last Done Comments [facility]-Bone Density Scan 1960 [facility]-Depression Screening 1960 [facility]-Hepatitis C Screening 1960 [facility]-/Child/Adol SDOH Screenings 1960 [facility]- SDOH Screenings 1978 [facility]-Adult SDOH Screenings 1978 [facility]-Pap Smear 1981 [facility]-Cervical Cancer Screening 1990 [facility]-HPV/Cotest 1990 CT Colonography 2005 Colonoscopy 2005 FIT-DNA 2005 FIT 2005 FOBT 2005 Sigmoidoscopy 2005 [facility]-Colorectal Cancer Screening 2005 [facility]-Breast Cancer Screening 2010 [facility]-Pneumococcal Vaccine: 50 + Years (1 of 1 - PCV) 2010 [facility]-Zoster Vaccines (1 of 2) 2010 [facility]-RSV Vaccine: 60+ Years o r (1 - Risk 60-74 years 1-dose series) 2020 [id number]-60 Vaccine (2 - Lane risk series) 02/13/2021 01/16/2021 [facility]-Influenza Vaccine (#1) 2025 [facility]-DTaP,Tdap,and Td Vaccine s (2 - Td or Tdap) 04/11/2032 04/11/2022, 06/02/2002 HPV Vaccines Aged Out No longer eligi ble based on patient's age to complete this topic [facility]-HIB Vaccines Aged Out No longer e ligible based on patient's age to complete this topic [facility]-Hepatitis A Vaccines Aged Out No longer eligible based on patient's age to complete this topic [facility]-IPV Vaccines Aged Out No longer e ligible based on patient's age to complete this topic [facility]-Rotavirus Vaccines Aged Out No lo nger eligible based on patient's age to complete this topic Insurance ANTH Care Teams Family Counselor Relationship Specialty Start Date End Date Merry Santana PA [address] [facility] [address] [place] [address] PCP - General 09/03/21
--- OUTSIDE RECORDS SUMMARY | 2025-07-18 11:47 | XMS_ITS | Clinical Summary ---
Author Organization [facility] Address [address] [place] [address] Phone Care Team Providers Care Turkey Boner Name Role Phone Unavailable Primary Care Provider Unavailabl e Social History Tobacco Use Types Packs/Day Years Used Date Smoking Tobacco: Never Assessed Comments Unknown Sex and Gender Information Value Date Recorded Sex Assigned at Not on file Legal Sex Female 11:26 AM EDT Gender Identity Not on file Sexual Orientation Not on file Plan of Treatment Health Maintenance Due Date Last Done Comments Annual Wellness Exam 1963 Hepatitis C Screening 1978 DTaP/TDaP/Td (1 - Tdap) 1979 Cervical Cancer Screening 1981 Pap Smear 1981 HPV/Pap Cotest 1990 Breast Cancer Screening 2000 Cologuard 2005 Colon Cancer Screening 2005 Colonoscopy 2005 FIT 2005 Sigmoidoscopy 2005 Virtual Colonography 2005 Pneumococcal Vaccine 50+ (1 of 1 - PCV) 2010 Zoster (1 of 2) 2010 Bone Density Screening 2025 COVID-19 Vaccine (1 - 2023-2 5 season) 2025 Influenza Vaccine (#1) 2025 Hepatitis B Vaccine Aged Out No longe r eligible based on patient's age to complete this topic Meningococcal B Vaccine Aged Out No l onger eligible based on patient's age to complete this topic Insurance
== END 2025-07-18 23:59 | disposition home or self-care (01) ==
LOC: RAD 11:42
PROVIDERS: Visit Provider Physician Assistant
DX: M17.0 Bilateral primary osteoarthritis of knee (principal)
CPT/HCPCS: 73562

== ENCOUNTER 2025-07-21 09:55 | Outpatient (CLI) | payer BC, SELFPAY ==
--- OUTSIDE RECORDS SUMMARY | 2024-01-27 08:55 | XMS_ITS ---
Author Organization [facility] Address [address] [facility] [address] [place] [id number] Care Team Providers Care Development Executive Name Role Phone Molly Mckeon Unavailable [phone] Max Merry Unavailable [phone] Results Component Value Reference Range Notes P-Potassium Reviewed date:02/02/2024 01:40:29 PM Interpretation: Performing Lab: Notes/Report: Test performed by [employer] [address] [place] [address] , [address], [place] [address] Byron Castrejon MD, [employer] CLIA: [id number] Potassium 4.0 3.5-5.3 mEq/L REASON FOR VISIT lab draw Encounters Encounter Location Date Provider Diagnosis [place] [address] [facility] [address] [place] [id number] 01/27/2024 Merry Santana Hyperuricemia E79.0 Assessments Encounter Date Diagnosis (ICD Code) Assessment Notes Treatment Notes Treatment Clinical Notes Section Notes 01/27/2024 Hyperuricemia (ICD-10 - E79.0) Plan Of Treatment No Information Progress Notes * Angelia MULTANIDOB:1960 (65 yo F)Acc No.[id number]:01/27/2024 Patient: Angelia ZUNIGA Provider: MICAH Hartman :1960 A ge:63 Y S ex:Female Date:01/27/2024 Address:[address] [id number] Subjective: * Chief Complaints: * 1 . Lab draw. * Medical History: Objective: * Vitals: Assessment: * Assessment: 1. H yperuricemia - E79.0 Plan: * Treatment: Value Reference Range P otassium 4.0 3.5-5.3 - mEq/L * Ebony Tolliver 02/02/2024 1: 40:05 PM >Patient informed of normal results. * Images: Billing Information: * Visit Code: * Procedure Codes: * Electronic signature of MICAH Nelson on 07/21/2025 at 09:59 AM EDT Sign off status: Pending * Provider: MICAH Hartman Date: 0 01/27/2024 Generated for Diya sams/Sree/Krystal on: 0 07/21/2025 09:59 AM EDT
--- OUTSIDE RECORDS SUMMARY | 2024-05-05 05:30 | XMS_ITS ---
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 Name Role Phone Molly Mckeon Unavailable [phone] Merry Santana Unavailable [phone] Allergies No Known Allergies Results Component Value Reference Range Notes CBC Venipuncture (in house) Reviewed date:05/05/2024 04:32:37 PM Interpretation: Performing Lab: Notes/Report: wbc 7.0 3.5 - 10 lymph 24.6% 15 - 50 mid 6.2% 2 - 15 gran 69.2% 35 - 80 rbc 4.05 3.5 - 5.5 hgb 13.3 11.5 - 16.5 hct 39.4 35 - 55 mcv 97.4 75 - 100 mch 33.0 25 - 35 mchc 33.8 31 - 38 platlet 206 100 - 400 P-Comprehensive Metabolic Pa kiley (CMP) Reviewed date:05/06/2024 04:21:42 PM Interpretation: Performing Lab: Notes/Report: Test performed by [facility] [address] [place] [address] , [address], [place] [address] Byron Castrejon MD, [employer] CLIA: [id number] Sodium 142 135-145 mmol/L Potassium 3.6 3.5-5.3 mmol/L Chloride 104 97-108 mmol/L CO2 24 22-32 mmol/L Glucose 94 65-99 mg/dL BUN 27 8-23 mg/dL Creatinine 0.83 0.50-1.00 mg/dL Calcium 9.7 8.6-10.4 mg/dL eGFR by Creatinine 79 >59 mL/min/1.73m2 Protein 6.7 6.0-8.3 g/dL Albumin 4.2 3.5-5.3 g/dL Alkaline Phosphatase 83 35-121 IU/L ALT (SGPT) 15 <5-47 IU/L AST (SGOT) 18 <5-40 IU/L Bilirubin, Total 0.4 <0.2-1.2 mg/dL A/G Ratio 1.7 1.1-2.5 mg/dL P-Lipid Panel Reviewed date:05/06/2024 04:21:42 PM Interpretation: Performing Lab: Notes/Report: Test performed by [facility], [address] , [address], [place] [address] Byron Castrejon MD, Salt [employer] CLIA: [id number] Cholesterol 231 <200 mg/dL Triglycerides 255 <150 mg/dL HDL Cholesterol 52 >39 mg/dL Cholesterol / HDL Ratio 4.44 0.00-4.44 Ratio Non-HDL Cholesterol 179 <130 mg/dL LDL Cholesterol (Calculation) 128 <130 mg/dL LDL Cholesterol Levels* Less than 100 mg/dL Optimal 100 to 129 mg/dL Near Optimal/ Above Optimal 130 to 159 mg/dL Borderline High 160 to 189 mg/dL High 190 mg/dL and above Very High * Categories as recommended by the 2004 ATPIII guidelines LDL/HDL Ratio 2.5 <3.3 Ratio LDL Cholesterol Patient History Test Date: 04/23/2023 LDL Results: 120 Units: mg/dL % Change: - Test Date: 12/23/2023 LDL Results: 126 Units: mg/dL % Change: +5% Test Date: 05/05/2024 LDL Results: 128 Units: mg/dL % Change: +1% P-TSH reflex to FT4 Reviewed date:05/06/2024 04:21:42 PM Interpretation: Performing Lab: Notes/Report: Test performed by [facility] [address] [place] [address] [place] [address] Byron Castrejon MD, [employer] CLIA: [id number] TSH reflex to FT4 1.73 0.43-5.25 mU/L P-Uric Acid Reviewed date:05/06/2024 04:21:42 PM Interpretation: Performing Lab: Notes/Report: Test performed by [facility] [address] [place], [place] [email or web address] [place] [address] Byron Castrejon MD, Salt Maker CLIA: [id number] Uric Acid 5.1 2.4-7.0 mg/dL P-Vitamin D 25-Hydroxy Reviewed date:05/06/2024 04:21:42 PM Interpretation: Performing Lab: Notes/Report: Test performed by [facility] [address] [place], [place] [email or web address] [place] [address] Byron Castrejon MD, [employer] CLIA: [id number] Vitamin D 25-Hydroxy 48.6 30.0-100.0 ng/mL Interpretation of Vitamin D 25 OH: < 20 ng/mL - Deficiency 20 - 29 ng/mL - Insufficiency 30 - 100 ng/mL - Sufficiency > 100 ng/mL - Super-therapeutic- toxicity may occur above this level. Clinical correlation required. REASON FOR VISIT refills Medications Medication SIG (Take, Route, Frequency, Duration) Notes Start Date End Date Status Ibuprofen 200 MG 4 tablet with food o r milk as needed Orally every 4 hours Active Vitamin E 100 UNIT 1 tab(s) orally once a day; Duration: 30 day(s) Active Atorvastatin Calcium 10 MG Take 1 tablet by mouth once daily for 90 days; Duration: 90 days Active Metoprolol Succinate ER 50 MG 1 tab(s) orally once a day; Duration: 90 days Active Lisinopril 20 MG 1 tab(s) orally once a day; Duration: 90 days 04/25/2022 Active Allopurinol 100 MG 2 tab orally once a day; Duration: 90 days Active amLODIPine Besylate 5 MG 1 tab(s) orally once a day; Duration: 90 days Active Social History Tobacco Use: Social History Observation Description Date Details (start date - stop date) Current Smoker NA - NA CURRENT TOBACCO USE: Question Answer Notes Are you a: current smoker How many cigarettes a day do you smoke? 5 or les s Vital Signs Weight 220.4 lbs 05/05/2024 Blood pressure systolic 132 mm Hg 05/05/20 24 Blood pressure diastolic 90 mm Hg 024 Heart Rate 86 /min 05/05/2024 Height 67.50 in 05/05/2024 BMI 34.01 kg/m2 05/05/2024 Encounters Encounter Location Date Provider Diagnosis [facility] [address] [facility] [address] [place], [place] [id number] 05/05/2024 Merry Santana Hyperuricemia E79.0 ; Essential hypertension I10 ; Obesity (BMI 30-39.9) E66.9 ; Chronic kidney disease, unspecified CKD stage N18.9 ; Vitamin D deficiency E55.9 ; Closed fracture of multiple ribs of right side with routine healing, subsequent encounter S22.41XD ; Hypertriglyceridemia E78.1 and Mixed hyperlipidemia E78.2 Assessments Encounter Date Diagnosis (ICD Code) Assessment Notes Treatment Notes Treatment Clinical Notes Section Notes 05/05/2024 Hyperuricemia (ICD-1 0 - E79.0) 05/05/2024 Essential hypertensi on (ICD-10 - I10) 05/05/2024 Obesity (BMI 30-39.9 ) (ICD-10 - E66.9) 05/05/2024 Chronic kidney disea se, unspecified CKD stage (ICD-10 - N18.9) 05/05/2024 Vitamin D deficiency (ICD-10 - E55.9) 05/05/2024 Closed fracture of multiple ribs of right side with routine healing, subsequent encounter (ICD-10 - S22.41XD) 05/05/2024 Hypertriglyceridemia (ICD-10 - E78.1) 05/05/2024 Mixed hyperlipidemia (ICD-10 - E78.2) Plan Of Treatment Medication Medication Name Sig Start Date Stop Date Notes Metoprolol Succinate ER 50 MG 1 tab(s) o rally once a day; Duration: 90 days Lisinopril 20 MG 1 tab(s) orally once a day; Duration: 90 days 04/25/2022 Allopurinol 100 MG 2 tab orally once a day; Duration: 90 days amLODIPine Besylate 5 MG 1 tab(s) orally once a day; Duration: 90 days Next Appt Details Follow Up: via phone to repo rt test results, Reason: Progress Notes * Angelia MULTANIDOB:1960 (65 yo F)Acc No.[id number]:05/05/2024 Progress Notes Patient: Angelia ZUNIGA Provider: MICAH Hartman :1960 A ge:63 Y S ex:Female Date:05/05/2024 Address:[address], [place], [id number] Subjective: * Chief Complaints: * 1 . Refills. * HPI: C ardiology: The patient is here for a check up on Hypertension and hyperlipidemia. Pt states doing good and denies any new concerns. Pt states she is needing refills sent to [facility] in [place]. Denies : Chest Pain. D enies : Short of Breath. D enies : Dizziness. D enies : Palpitations. * ROS: D ERMATOLOGY: no R zhane. n o H stefan. G ASTROENTEROLOGY: no N ausea. n o V omiting. n o D iarrhea.? U ROLOGY: no D ifficulty urinating. n o B lood in urine. * Medical History: H YPERTENSION, ARTHRITIS, Gout, Chronic Kidney Disease. * Surgical History: C -section 1984, 1992. * Family History: F ather: , diabetes, double amputee. M other: . 1 brother(s) , 3 sister(s) . 2 daughter(s) - healthy. . siblings have HTN and diabetes. * Social History: C URRENT TOBACCO USE A re you a: c urrent smoker, H ow many cigarettes a day do you smoke? 5 or less. E xercise: no. Marital Status: Single. Past smoking status: yes, PPD:< 1 , years: 30. Recreational drug use: no. * Medications: T aking Ibuprofen 200 MG Tablet 4 tablet with food or milk as needed Orally every 4 hours , Taking Vitamin E 100 UNIT Tablet 1 tab(s) orally once a day , Taking amLODIPine Besylate 5 MG Tablet 1 tab(s) orally once a day , Taking Metoprolol Succinate ER 50 MG Tablet Extended Release 24 Hour 1 tab(s) orally once a day , Taking Lisinopril 20 MG Tablet 1 tab(s) orally once a day , Taking Allopurinol 100 MG Tablet 2 tab orally once a day , Taking Atorvastatin Calcium 10 MG Tablet Take 1 tablet by mouth once daily for 90 days , Discontinued Ibuprofen 800 MG Tablet 1 tablet with food or milk as needed Orally every 8 hrs, prn , Discontinued Potassium Chloride ER 20 MEQ Tablet Extended Release 1 tablet with food Orally Once a day , Medication List reviewed and reconciled with the patient * Allergies: N .K.D.A. Objective: * Vitals: W t:220.4, Temp:98.3, BP:132/90, HR:86, Nurse:TERESO, Ht: 67.50, Repeat BP:128/80, BMI:34.01. * Examination: G eneral Examination: General Appearance: N AD. H EENT: u nremarkable.?Oral cavity: n o lesions, mucosa moist and WNL, no erythema. N ryan: s upple, no lymphadenopathy. C hest: n ormal shape and expansion, still some mild tenderness on the right side near rib fractures. H eart: R SR. L ungs: c lear to auscultation. A bdomen:? bowel sounds present, soft and nontender, no organomegaly or masses, no guarding or rigidity. Neurologic Exam: I ntact, gait normal. S kin: n ormal, no rash. P eripheral pulses: n ormal (2+) bilaterally. E xtremities: n o leg edema. Assessment: * Assessment: 1. H yperuricemia - E79.0 (Primary) 2 . E ssential hypertension - I10 ? 3 . O besity (BMI 30-39.9) - E66.9 4 . C hronic kidney disease, unspecified CKD stage - N18.9 5 . V itamin D deficiency - E55.9 6 . C losed fracture of multiple ribs of right side with routine healing, subsequent encounter - S22.41XD 7 . H ypertriglyceridemia - E78.1 8 . M ixed hyperlipidemia - E78.2 Plan: * Treatment: Value Reference Range U nancy Acid 5.1 2.4-7.0 - mg/dL * Merry Santana 05/06/2024 4: 21:30 PM > see TE 2.?Essential hypertension? Refill amLODIPine Besylate Tablet, 5 MG, 1 tab(s), orally, once a day, 90 days, 90 Tablet, Refills 1;?Refill Metoprolol Succinate ER Tablet Extended Release 24 Hour, 50 MG, 1 tab(s), orally, once a day, 90 days, 90 Tablet, Refills 1;?Refill Lisinopril Tablet, 20 MG, 1 tab(s), orally, oncea day, 90 days, 90 Tablet, Refills 1.?LAB: P-Comprehensive Metabolic Panel (CMP) (Collection Date & Time - 05/05/2024 09:05 AM)* Value Reference Range A /G Ratio 1.7 1.1-2.5 - mg/dL * A lbumin 4.2 3.5-5.3 - g/dL * A lkaline Phosphatase 83 35-121 - IU/L * A LT (SGPT) 15 <5-47 - IU/L * A ST (SGOT) 18 <5-40 - IU/L * B ilirubin, Total 0.4 <0.2-1.2 - mg/dL * B UN 27 H 8-23 - mg/dL * C alcium 9.7 8.6-10.4 - mg/dL * C hloride 104 97-108 - mmol/L * C O2 24 22-32 - mmol/L * C reatinine 0.83 0.50-1.00 - mg/dL * G lucose 94 65-99 - mg/dL * P otassium 3.6 3.5-5.3 - mmol/L * S odium 142 135-145 - mmol/L * P rotein 6.7 6.0-8.3 - g/dL * e GFR by Creatinine 79 >59 - mL/min/1.73m2 * Merry Santana 05/06/2024 4: 21:30 PM > see TE ?LAB: CBC Venipuncture (in house) (Collection Date & Time - 05/05/2024)* Value Reference Range w bc 7.0 3.5 - 10 * l ymph 24.6% 15 - 50 * m id 6.2% 2 - 15 * g ran 69.2% 35 - 80 * r bc 4.05 3.5 - 5.5 * h gb 13.3 11.5 - 16.5 * h ct 39.4 35 - 55 * m cv 97.4 75 - 100 * m ch 33.0 25 - 35 * m chc 33.8 31 - 38 * p latlet 206 100 - 400 * Lissa Palumbo 05/05/2024 11: 22:43 AM >Merry Santana 05/05/2024 4:32:34 PM > 3.?Obesity (BMI 30-39.9)?LAB: P-TSH reflex to FT4 (Collection Date & Time - 05/05/2024 09:05 AM)* Value Reference Range T SH reflex to FT4 1.73 0.43-5.25 - mU/L * Merry Santana 05/06/2024 4: 21:30 PM > see TE 4.?Vitamin D deficiency?LAB: P-Vitamin D 25-Hydroxy (Collection Date & Time - 05/05/2024 09:05 AM) * Value Reference Range V itamin D 25-Hydroxy 48.6 30.0-100.0 - ng/mL * MaxMerry Iris 05/06/2024 4: 21:30 PM > see TE 5.?Mixed hyperlipidemia?LAB: P-Lipid Panel (Collection Date & Time - 05/05/2024 09:05 AM)* Value Reference Range C holesterol / HDL Ratio 4.44 H 0.00-4.44 - Ratio * C holesterol 231 H <200 - mg/dL * H DL Cholesterol 52 >39 - mg/dL * L DL Cholesterol (Calculation) 128 <130 - mg/d L * L DL/HDL Ratio 2.5 <3.3 - Ratio * N on-HDL Cholesterol 179 H <130 - mg/dL * T riglycerides 255 H <150 - mg/dL * MaxMerry Simmons 05/06/2024 4: 21:30 PM > see TE * Procedure Codes: 8 5025 CBC WITH AUTO DIFF, 30581 VENIPUNCT, ROUTINE* * Follow Up: v ia phone to report test results * Images: Billing Information: * Visit Code: 22617 Office Visit, Est Pt., Level 4. * Procedure Codes: 73345 CBC WITH AUTO DIFF. 82916 VENIPUNCT, ROUTINE*. * Electronic signature of MICAH Nelson on 07/21/2025 at 09:59 AM EDT Sign off status: Pending * Provider: MICAH Hartman Date: 0 05/05/2024 Generated for Diya sams/Sree/eTsangeetasmitting on: 0 07/21/2025 09:59 AM EDT History and Physical Notes * HPI (History of Present Illness) Category Sub-Category Detail Notes Category Not es Cardiology Short of Breath Chest Pain Palpitations Dizziness Examination Category Sub-Category Detail Notes Category Not es General Examination HEENT: unremarkable Heart: RSR Lungs: clear to auscultatio n Abdomen: bowel sounds present , soft and nontender, no organomegaly or masses, no guarding or rigidity Extremities: no leg edema General Appearance: NAD Skin: normal, no rash Neurologic Exam: Intact, gait normal Neck: supple, no lymphaden opathy Oral cavity: no lesions, mucosa m oist and WNL, no erythema Peripheral pulses: normal (2+) bilatera lly Chest: normal shape and exp ansion, still some mild tenderness on the right side near rib fractures
--- OUTSIDE RECORDS SUMMARY | 2024-10-28 09:15 | XMS_ITS ---
[facility] Address [address] [facility] [place] [address] [place] [id number] Care Team Providers Care Community Health Agent Name Role Phone Molly Mckeon Unavailable [phone] Merry Santana Unavailable [phone] Allergies No Known Allergies REASON FOR VISIT refills,discuss weight loss shot Medications Medication SIG (Take, Route, Frequency, Duration) Notes Start Date End Date Status Allopurinol 100 MG Take 2 tablets by mo uth once daily; Duration: 90 Active Lisinopril 20 MG Take 1 tablet by ralph th once daily; Duration: 90 Active Zepbound 2.5 MG/0.5ML 2.5 mg Subcutaneou s once a week 10/28/2024 Active Metoprolol Succinate ER 50 MG Take 1 tablet by mouth once daily; Duration: 90 Active amLODIPine Besylate 5 MG Take 1 tablet b y mouth once daily; Duration: 90 Active Vitamin E 100 UNIT 1 tab(s) orally once a day; Duration: 30 day(s) Active Atorvastatin Calcium 10 MG 1 tablet Oral ly once daily; Duration: 90 days Active Ibuprofen 200 MG 4 tablet with food o r milk as needed Orally every 4 hours Active Social History Tobacco Use: Social History Observation Description Date Details (start date - stop date) Current Smoker NA - NA CURRENT TOBACCO USE: Question Answer Notes Are you a: current smoker How many cigarettes a day do you smoke? 5 or les s Problems Problem Type SNOMED Code ICD Code Onset Dates Problem Status W/U Status Risk Notes Problem Obesity due to excess calories (114737638) Other obesity due to excess calories (E66.09) Active confirmed Problem Obese class I ([id number]) BMI 33.0-33.9,adul t (Z68.33) Active confirmed Vital Signs Weight 216.0 lbs 10/28/2024 Blood pressure systolic 124 mm Hg 10/28/20 24 Blood pressure diastolic 68 mm Hg 024 Heart Rate 100 /min 10/28/2024 Height 67.50 in 10/28/2024 BMI 33.33 kg/m2 10/28/2024 Encounters Encounter Location Date [facility] [address] [facility] [place] [address], [place] [id number] 10/28/2024 Merry Santana Other obesity due to excess calories E66.09 ; BMI 33.0-33.9,adult Z68.33 ; Hyperuricemia E79.0 ; Essential hypertension I10 ; Chronic kidney disease, unspecified CKD stage N18.9 ; Vitamin D deficiency E55.9 ; Hypertriglyceridemia E78.1 and Mixed hyperlipidemia E78.2 Assessments Encounter Date Diagnosis (ICD Code) Assessment Notes Treatment Notes Treatment Clinical Notes Section Notes 10/28/2024 Other obesity due to excess calories (ICD-10 - E66.09) 10/28/2024 BMI 33.0-33.9,adult (ICD-10 - Z68.33) 10/28/2024 Hyperuricemia (ICD-1 0 - E79.0) 10/28/2024 Essential hypertensi on (ICD-10 - I10) Patient's medications have already been refilled. She will come in Thursday fasting for labs: CBC, CMP, TSH with reflex to Free T4, Uric acid, Lipids, Vit D 10/28/2024 Chronic kidney disea se, unspecified CKD stage (ICD-10 - N18.9) 10/28/2024 Vitamin D deficiency (ICD-10 - E55.9) 10/28/2024 Hypertriglyceridemia (ICD-10 - E78.1) 10/28/2024 Mixed hyperlipidemia (ICD-10 - E78.2) Plan Of Treatment Medication Medication Name Sig Start Date Stop Date Notes Zepbound 2.5 MG/0.5ML 2.5 mg Subcutaneous once a week 10/10 Treatment Notes Assessment Notes Essential hypertension Patient's medicat ions have already been refilled. She will come in Thursday fasting for labs: CBC, CMP, TSH with reflex to Free T4, Uric acid, Lipids, Vit D Next Appt Details Follow Up: via phone to repo rt test results, Reason: Progress Notes * Angelia MULTANIDOB:1960 (65 yo F)Acc No.[id number]:10/28/2024 Progress Notes Patient: Angelia ZUNIGA Provider: MICAH Hartman :1960 A ge:64 Y S ex:Female Date:10/28/2024 Address:[facility] [address], [place], [id number] Subjective: * Chief Complaints: * 1 . Refills,discuss weight loss shot. * HPI: C onstitutional: 64 year old female presents with c/o weight loss P t is here today to discuss the shot for w eight loss. H PI: c/o Patient is here today for r efills on all medications.? * ROS: D ERMATOLOGY: no R zhane. [...] tab(s) orally once a day , Taking Atorvastatin Calcium 10 MG Tablet 1 tablet Orally once daily , Taking Allopurinol 100 MG Tablet Take 2 tablets by mouth once daily , Taking Lisinopril 20 MG Tablet Take 1 tablet by mouth once daily , Taking Metoprolol Succinate ER 50 MG Tablet Extended Release 24 Hour Take 1 tablet by mouth once daily , Taking amLODIPine Besylate 5 MG Tablet Take 1 tablet by mouth once daily , Medication List reviewed and reconciled with the patient * Allergies: N .K.D.A. Objective: * Vitals: W t:216.0, Temp:98.4, BP:124/68, HR:100, Nurse:CESARIO, Ht: 67.50, BMI:33.33. * Examination: G eneral Examination: General Appearance: N AD. H EENT: u nremarkable.?Oral cavity: n o lesions, mucosa moist and WNL, no erythema. N ryan: s upple, no lymphadenopathy. C hest: n ormal shape and expansion. H eart: R SR. L ungs: c lear to auscultation. A bdomen: bowel sounds present, soft and nontender, no organomegaly or masses, no guarding or rigidity. N eurologic Exam: I ntact, gait normal. S kin: n ormal, no rash. P eripheral pulses: n ormal (2+) bilaterally. E xtremities: n o leg edema. Assessment: * Assessment: 1. H yperuricemia - E79.0 (Primary) 2 . O ther obesity due to excess calories - E66.09 3 . B MS 33.0-33.9,adult - Z68.33 4 . E ssential hypertension - I10 5 . C hronic kidney disease, unspecified CKD stage - N18.9 6. V itamin D deficiency - E55.9 7 . H ypertriglyceridemia - E78.1 8 . M ixed hyperlipidemia - E78.2 Plan: * Treatment: 2. E ssential hypertension Notes: Patient's medications have already been refilled. She will come in Thursday fasting for labs: CBC, CMP, TSH with reflex to Free T4, Uric acid, Lipids, Vit D * Follow Up: v ia phone to report test results * Images: Billing Information: * Visit Code: 12879 Office Visit, Est Pt., Level 4. * Procedure Codes: * Electronic signature of MICAH Nelson on 07/21/2025 at 09:59 AM EDT Sign off status: Pending * Provider: MICAH Hartman Date: 1 12/29/2023 Generated for Diya sams/Sree/Luigiitting on: 0 07/21/2025 09:59 AM EDT History and Physical Notes * HPI (History of Present Illness) Category Sub-Category Detail Notes Category Not es Constitutional weight loss Pt is here today to discuss the shot for weight loss HPI Patient is here today for refills on all medications Examination Category Sub-Category Detail Notes Category Not [...] bilatera lly Chest: normal shape and exp ansion
--- OUTSIDE RECORDS SUMMARY | 2025-06-28 05:45 | XMS_ITS ---
Author Organization [facility] Address [address] SAMIRA Camacho [id number] Care Team Providers Care Showroom Salesperson Name Role Phone Molly Mckeon Unavailable [phone] Merry Santana Unavailable [phone] Allergies No Known Allergies Results Component Value Reference Range Notes CBC Venipuncture (in house) Reviewed date:06/28/2025 01:09:33 PM Interpretation: Performing Lab: Notes/Report: wbc 6.8 3.5 - 10 lymph 29.8% 15 - 50 mid 6.9% 2 - 15 gran 63.3% 35 - 80 rbc 3.79 3.5 - 5.5 hgb 12.4 11.5 - 16.5 hct 37.2 35 - 55 mcv 98.0 75 - 100 mch 32.8 25 - 35 mchc 33.4 31 - 38 platlet 225 100 - 400 P-Vitamin B12 Reviewed date:07/13/2025 01:19:39 PM Interpretation: Performing Lab: Notes/Report: Test performed by [facility] [address] [place], [place] [address] , [address], [place] [address] Byron Castrejon MD, Link Fabric Machine Operator CLIA: [id number] Vitamin B12 >2000 232-1245 pg/mL P-Comprehensive Metabolic Pa kiley (CMP) Reviewed date:07/13/2025 01:19:39 PM Interpretation: Performing Lab: Notes/Report: Test performed by [facility] [address] [place] [address] , [address], [place] [address] Byron Castrejon MD, Link Fabric Machine Operator CLIA: [id number] Sodium 144 135-145 mmol/L Potassium 3.3 3.5-5.3 mmol/L Chloride 104 97-108 mmol/L CO2 25 20-32 mmol/L Glucose 98 65-99 mg/dL BUN 18 8-23 mg/dL Creatinine 1.00 0.50-1.00 mg/dL Calcium 9.4 8.6-10.4 mg/dL eGFR by Creatinine 62 >59 mL/min/1.73m2 Protein 6.7 6.0-8.3 g/dL Albumin 4.2 3.5-5.3 g/dL Alkaline Phosphatase 74 35-121 IU/L ALT (SGPT) 12 <5-47 IU/L AST (SGOT) 18 <5-40 IU/L Bilirubin, Total 0.5 <0.2-1.2 mg/dL A/G Ratio 1.7 1.1-2.5 P-Lipid Panel Reviewed date:07/13/2025 01:19:39 PM Interpretation: Performing Lab: Notes/Report: Test performed by [facility] [address] , [place] [address] Byron Castrejon MD, Link Fabric Machine Operator CLIA: [id number] Cholesterol 204 <200 mg/dL Triglycerides 206 <150 mg/dL HDL Cholesterol 57 >39 mg/dL Cholesterol / HDL Ratio 3.58 0.00-4.44 Ratio Non-HDL Cholesterol 147 <130 mg/dL LDL Cholesterol (Calculation) 106 <130 mg/dL LDL Cholesterol Levels* Less than 100 mg/dL Optimal 100 to 129 mg/dL Near Optimal/ Above Optimal 130 to 159 mg/dL Borderline High 160 to 189 mg/dL High 190 mg/dL and above Very High * Categories as recommended by the 2004 ATPIII guidelines LDL/HDL Ratio 1.9 <3.3 Ratio LDL Cholesterol Patient History Test Date: 12/23/2023 LDL Results: 126 Units: mg/dL % Change: +5% Test Date: 05/05/2024 LDL Results: 128 Units: mg/dL % Change: +1% Test Date: 06/28/2025 LDL Results: 106 Units: mg/dL % Change: -17% P-TSH reflex to FT4 Reviewed date:07/13/2025 01:19:39 PM Interpretation: Performing Lab: Notes/Report: Test performed by [facility] [address] [place] [address] [place] [address] Byron Castrejon MD, Link Fabric Machine Operator CLIA: [id number] TSH reflex to FT4 1.76 0.43-5.25 mU/L P-Uric Acid Reviewed date:07/13/2025 01:19:39 PM Interpretation: Performing Lab: Notes/Report: Test performed by [facility] [address] [place] [address] [place] [address] Byron Castrejon MD, Link Fabric Machine Operator CLIA: [id number] Uric Acid 5.8 2.4-7.0 mg/dL P-Vitamin D 25-Hydroxy Reviewed date:07/13/2025 01:19:39 PM Interpretation: Performing Lab: Notes/Report: Test performed by [facility] [address] [place] [address] , [address], [place] [address] Byron Castrejon MD, Link Fabric Machine Operator CLIA: [id number] Vitamin D 25-Hydroxy 72.6 30.0-100.0 ng/mL Interpretation of Vitamin D 25 OH: < 20 ng/mL - Deficiency 20 - 29 ng/mL - Insufficiency 30 - 100 ng/mL - Sufficiency > 100 ng/mL - Super-therapeutic- toxicity may occur above this level. Clinical correlation required. REASON FOR VISIT check up and refills, Needs labs, mammogram, bone density screening, low dose chest CT, colonoscopydue to positive cologuard, & shingles vaccine Medications Medication SIG (Take, Route, Frequency, Duration) Notes Start Date End Date Status Atorvastatin Calcium 10 MG 1 tablet Orally Once a day; Duration: 90 days Active Vitamin E 100 UNIT 1 tab(s) orally once a day; Duration: 30 day(s) Active Allopurinol 100 MG 2 tablets Orally Onc e a day; Duration: 90 days Active Ibuprofen 200 MG 4 tablet with food o r milk as needed Orally every 4 hours Active Metoprolol Succinate ER 50 MG 1 tablet Orally Once a day; Duration: 90 days Pt needs appt Active Lisinopril 20 MG 1 tablet Orally Once a day; Duration: 90 days Active amLODIPine Besylate 5 MG 1 tablet Orally Once a day; Duration: 90 days Active Social History Tobacco Use: Social History Observation Description Date Details (start date - stop date) Current Smoker NA - NA CURRENT TOBACCO USE: Question Answer Notes Are you a: current smoker How many cigarettes a day do you smoke? 5 or les s Vital Signs Weight 213.8 lbs 06/28/2025 Blood pressure systolic 110 mm Hg 06/28/20 25 Blood pressure diastolic 80 mm Hg 025 Heart Rate 75 /min 06/28/2025 Height 67.50 in 06/28/2025 BMI 32.99 kg/m2 06/28/2025 Encounters Encounter Location Date Provider Diagnosis [facility] [address] [facility] [address] [facility] [address] [place] Camacho [id number] 06/28/2025 Merry Santana Essential hypertensi on I10 ; Chronic kidney disease, unspecified CKD stage N18.9 ; Hyperuricemia E79.0 ; Other obesity due to excess calories E66.09 ; Vitamin D deficiency E55.9 ; Hypertriglyceridemia E78.1 ; Mixed hyperlipidemia E78.2 ; Positive colorectal cancer screening using Cologuard test R19.5 ; Other fatigue R53.83 ; Osteoporosis screening Z13.820 ; Screening mammogram, encounter for Z12.31 and Tobacco use Z72.0 Assessments Encounter Date Diagnosis (ICD Code) Assessment Notes Treatment Notes Treatment Clinical Notes Section Notes 06/28/2025 Essential hypertensi on (ICD-10 - I10) Patient's medications have already been refilled. She will come in Thursday fasting for labs: CBC, CMP, TSH with reflex to Free T4, Uric acid, Lipids, Vit D 06/28/2025 Chronic kidney disea se, unspecified CKD stage (ICD-10 - N18.9) 06/28/2025 Hyperuricemia (ICD-1 0 - E79.0) 06/28/2025 Other obesity due to excess calories (ICD-10 - E66.09) 06/28/2025 Vitamin D deficiency (ICD-10 - E55.9) 06/28/2025 Hypertriglyceridemia (ICD-10 - E78.1) 06/28/2025 Mixed hyperlipidemia (ICD-10 - E78.2) 06/28/2025 Positive colorectal cancer screening using Cologuard test (ICD-10 - R19.5) 06/28/2025 Other fatigue (ICD-1 0 - R53.83) 06/28/2025 Osteoporosis screeni ng (ICD-10 - Z13.820) 06/28/2025 Screening mammogram, encounter for (ICD-10 - Z12.31) 06/28/2025 Tobacco use (ICD-10 - Z72.0) Plan Of Treatment Medication Medication Name Sig Start Date Stop Date Notes Atorvastatin Calcium 10 MG 1 tablet Oral ly Once a day; Duration: 90 days Allopurinol 100 MG 2 tablets Orally Onc e a day; Duration: 90 days Metoprolol Succinate ER 50 MG 1 tablet Orally Once a day; Duration: 90 days Pt needs appt Lisinopril 20 MG 1 tablet Orally Once a day; Duration: 90 days amLODIPine Besylate 5 MG 1 tablet Orally Once a day; Duration: 90 days Treatment Notes Assessment Notes Essential hypertension Patient's medicat ions have already been refilled. She will come in Thursday fasting for labs: CBC, CMP, TSH with reflex to Free T4, Uric acid, Lipids, Vit D Pending Test Test Name Order Date colonoscopy 06/28/2025 Mammogram 06/28/2025 CT SCAN : CHEST, LUNG CANCER SCREENING L OW DOSE 06/28/2025 Next Appt Details Follow Up: via phone to repo rt test results, Reason: Progress Notes * Angelia MULTANIDOB:1960 (65 yo F)Acc No.[id number]:06/28/2025 Progress Notes Patient: Angelia ZUNIGA Provider: MICAH Hartman :1960 A ge:65 Y S ex:Female Date:06/28/2025 Address:[facility] [address], [facility], [id number] Subjective: * Chief Complaints: * 1 . Check up and refills. 2. Needs labs, mammogram, bone density screening, low dose chest CT, colonoscopy due to positive cologuard, & shingles vaccine. * HPI: H PI: Patient is here today for c heckup and labs. Pt is fasting. Pt states she needs refills on her meds. Pt states she is doing good with no new concerns. Pt wants to know if she could take Vitamin D. * ROS: D ERMATOLOGY: no R zhane. [...] Taking amLODIPine Besylate 5 MG Tablet 1 tablet Orally Once a day , Taking Allopurinol 100 MG Tablet 2 tablets Orally Once a day , Taking Atorvastatin Calcium 10 MG Tablet 1 tablet Orally Once a day , Taking Lisinopril 20 MG Tablet 1 tablet Orally Once a day , Taking Metoprolol Succinate ER 50 MG Tablet Extended Release 24 Hour 1 tablet Orally Once a day , Notes to Pharmacist: Pt needs appt, Discontinued Wegovy 0.25 MG/0.5ML Solution Auto-injector 0.25 mg Subcutaneous once a week , Medication List reviewed and reconciled with the patient * Allergies: N .K.D.A. Objective: * Vitals: W t: 213.8, Temp: 98.3, BP: 110/80, HR: 75, Nurse: pe, Ht: 67.50, BMI:32.99. * Examination: G eneral Examination: General Appearance: [...] o leg edema. Assessment: * Assessment: 1. E ssential hypertension - I10 (Primary) 2 . C hronic kidney disease, unspecified CKD stage - N18.9 3 . H yperuricemia - E79.0 4 . O ther obesity due to excess calories - E66.09 5 . V itamin D deficiency - E55.9 6. H ypertriglyceridemia - E78.1 7 . M ixed hyperlipidemia - E78.2 8 . P ositive colorectal cancer screening using Cologuard test - R19.5? 9. O ther fatigue - R53.83 1 0. O steoporosis screening - Z13.820 1 1. S creening mammogram, encounter for - Z12.31 1 2. T obacco use - Z72.0 Plan: * Treatment: Value Reference Range A /G Ratio 1.7 1.1-2.5 - * A lbumin 4.2 3.5-5.3 - g/dL * A lkaline Phosphatase 74 35-121 - IU/L * A LT (SGPT) 12 <5-47 - IU/L * A ST (SGOT) 18 <5-40 - IU/L * B ilirubin, Total 0.5 <0.2-1.2 - mg/dL * B UN 18 8-23 - mg/dL * C alcium 9.4 8.6-10.4 - mg/dL * C hloride 104 97-108 - mmol/L * C O2 25 20-32 - mmol/L * C reatinine 1.00 0.50-1.00 - mg/dL * G lucose 98 65-99 - mg/dL * P otassium 3.3 L 3.5-5.3 - mmol/L * S odium 144 135-145 - mmol/L * P rotein 6.7 6.0-8.3 - g/dL * e GFR by Creatinine 62 >59 - mL/min/1.73m2 * Merry Santana 06/28/2025 1 0:15:29 AM EDT >room B, purple Merry Santana 07/13/2025 01:18:50 PM EDT >see TE ?LAB: CBC Venipuncture (in house) (Collection Date & Time - 06/28/2025)* Value Reference Range w bc 6.8 3.5 - 10 * l ymph 29.8% 15 - 50 * m id 6.9% 2 - 15 * g ran 63.3% 35 - 80 * r bc 3.79 3.5 - 5.5 * h gb 12.4 11.5 - 16.5 * h ct 37.2 35 - 55 * m cv 98.0 75 - 100 * m ch 32.8 25 - 35 * m chc 33.4 31 - 38 * p latlet 225 100 - 400 * Alexus Joshi 06/28/2025 12:37: 17 PM EDT > Notes: Patient's medications have already been refilled. She will come in Thursday fasting for labs: CBC, CMP, TSH with reflex to Free T4, Uric acid, Lipids, Vit D??2.?Hyperuricemia? Refill Allopurinol Tablet, 100 MG, 2 tablets, Orally, Once a day, 90 days, 180 Tablet, Refills 1. ?LAB: P-Uric Acid (Collection Date & Time - 06/28/2025 09:25 AM)* Value Reference Range U nancy Acid 5.8 2.4-7.0 - mg/dL * Merry Santana 06/28/2025 1 0:15:29 AM EDT >room Bpranav Crista S 07/13/2025 01:18:50 PM EDT >see TE 3.?Vitamin D deficiency?LAB: P-Vitamin D 25-Hydroxy (Collection Date & Time - 06/28/2025 09:25 AM) * Value Reference Range V itamin D 25-Hydroxy 72.6 30.0-100.0 - ng/mL * Merry Santana 06/28/2025 1 0:15:29 AM EDT >room pranav Crista S 07/13/2025 01:18:50 PM EDT >see TE 4.?Hypertriglyceridemia? Refill Atorvastatin Calcium Tablet, 10 MG, 1 tablet, Orally, Once a day, 90 days, 90 Tablet, Refills 1.??5.?Mixed hyperlipidemia?LAB: P-Lipid Panel (Collection Date & Time - 06/28/2025 09:25 AM)* Value Reference Range C holesterol / HDL Ratio 3.58 0.00-4.44 - Ratio * C holesterol 204 H <200 - mg/dL * H DL Cholesterol 57 >39 - mg/dL * L DL Cholesterol (Calculation) 106 <130 - mg/d L * L DL/HDL Ratio 1.9 <3.3 - Ratio * N on-HDL Cholesterol 147 H <130 - mg/dL * T riglycerides 206 H <150 - mg/dL * Merry Santana 06/28/2025 1 0:15:29 AM EDT >room Bpranav Crista S 07/13/2025 01:18:50 PM EDT >see TE 6.?Positive colorectal cancer screening using Cologuard test?Imaging: colonoscopy* Merry Santana 06/28/2025 0 1:08:06 PM EDT >Needs with Meena Castanon 06/28/2025 01:52:07 PM EDT > faxed to Dr. Crespo office 7.?Other fatigue?LAB: P-Vitamin B12 (Collection Date & Time - 06/28/2025 09:25 AM)* Value Reference Range V itamin B12 >2000 H 232-1245 - pg/mL * Merry Santana 06/28/2025 1 0:15:29 AM EDT >room Bpranav Crista S 07/13/2025 01:18:50 PM EDT >see TE ?LAB: P-TSH reflex to FT4 (Collection Date & Time - 06/28/2025 09:25 AM)* Value Reference Range T SH reflex to FT4 1.76 0.43-5.25 - mU/L * Merry Santana 06/28/2025 1 0:15:29 AM EDT >room Bpranav Crista S 07/13/2025 01:18:50 PM EDT >see TE 8.?Screening mammogram, encounter for?Imaging: Mammogram* Meena Cordero 06/28/2025 01:3 3:27 PM EDT > faxed to [facility] Scheduling 9.?Tobacco use?Imaging: CT SCAN : CHEST, LUNG CANCER SCREENING LOW DOSE* Meena Cordero 06/28/2025 01:2 4:08 PM EDT > auth#[id number]; valid 06/28/2025-07/27/2025; CPT code 14919; faxed to [facility] Scheduling * Procedure Codes: 8 5025 CBC WITH AUTO DIFF, 23107 VENIPUNCT, ROUTINE*, 3074F SYST BP LT 130 MM HG, 3079F DIAST BP 80-89 MM HG * Follow Up: v ia phone to report test results * Images: Billing Information: * Visit Code: 94914 Office Visit, Est Pt., Level 4. * Procedure Codes: 11904 CBC WITH AUTO DIFF. 70758 VENIPUNCT, ROUTINE*. 3074F SYST BP LT 130 MM HG. 3079F DIAST BP 80-89 MM HG. * Electronic signature of MICAH Nelson on 07/21/2025 at 09:59 AM EDT Sign off status: Pending * Provider: MICAH Hartman Date: 0 06/28/2025 Generated for Diya sams/Sree/eTransmitting on: 0 07/21/2025 09:59 AM EDT History and Physical Notes * HPI (History of Present Illness) Category Sub-Category Detail Notes Category Not es HPI Patient is here today for checku p and labs. Pt is fasting. Pt states she needs refills on her meds. Pt states she is doing good with no new concerns. Pt wants to know if she could take Vitamin D Examination Category Sub-Category Detail Notes Category Not [...]
--- NOTE | 2025-07-21 09:58 | XR_ITS ---
FINAL REPORT TECHNIQUE: Bone densitometry calculations of the lumbar spine and left hip were obtained. CLINICAL HISTORY: post menopausal COMPARISON: None FINDINGS: Using L1-4, the bone mineral density of the spine is 1.078 g/cm2, corresponding to T-score of 0.3 and a Z score of 2.1. This is within the range of normal. Using the left hip, the bone mineral density of the femoral neck is 1.027 g/cm2, corresponding to a T-score of 0.7 and a Z-score of 1.9. This is within the range of normal. Using the right hip, the bone mineral density of the femoral neck is 0.876 g/cm?, corresponding to a T-score of 0.2 and a Z-score of 1.8. This is within the range of normal. NOTE: T-score: Standard deviation compared with peak bone mass of young adult mean. *Following the recommendations of the International Society of Bone densitometry, classification of hip BMD is based on the lower of two T-scores; total hip or femoral neck. IMPRESSION: 1. Bone mineral density of the lumbar spine within the range of normal. 2. Bone mineral density of the bilateral femoral necks within the range of normal. Reviewed, Interpreted and Dictated by Flory Hall MD Transcribed by Ria Whalen Authenticated and [facility]
--- NOTE | 2025-07-21 09:58 | MM_ITS ---
PROCEDURE INFORMATION: Exam: Bilateral Screening 3D Mammography Exam date and time: 07/21/2025 10:24 AM Age: 65 years old Clinical indication: Screening examination TECHNIQUE: Imaging protocol: Bilateral Screening tomosynthesis and 2D mammography including computer-aided detection (CAD) when performed. COMPARISON: 1. DMDB DIGITAL MAMM-DX BILATERAL 08/19/2012 1:56 PM 2. DIGMAMMS MAMMOGRAM SCREEN-AUTO TECHNICIAN N/C 08/29/2005 2:17 PM FINDINGS: MAMMOGRAPHY: Breast composition: There are scattered areas of fibroglandular density. Mass: Questioned 0.6 cm mass lower slightly lateral left breast depth. Architectural distortion: None. Calcifications: No suspicious calcifications. Asymmetric density: None. Skin thickening: None. Axillary adenopathy: None. IMPRESSION: Questioned subcentimeter left breast mass.Recommend left breast diagnostic mammogram including spot compression views of the left breast in the CC and MLO projections, a full 90 degree lateral view, and left breast ultrasound for further evaluation. ASSESSMENT: BI-RADS Category 0: Incomplete- Need Additional Imaging Evaluation.
--- OUTSIDE RECORDS SUMMARY | 2025-07-21 09:59 | XMS_ITS | Clinical Summary ---
Author Organization Healthcare Address [address] [place] [address] Care Team Providers Care Senior Enlisted Advisor Name Role Phone Merry Santana Primary Care Provider Allergies No known active allergies Medications allopurinol [...] [facility]-Depression Screening 1960 [facility]-Hepatitis C Screening 1960 [facility]-Infant/Child/Adol SDOH Screenings 1960 [facility]- SDOH Screenings 1978 [...] - Risk 60-74 years 1-dose series) 2020 [id number] Vaccine (2 - Lane risk series) 02/13/2021 [...] complete this topic Insurance ANTH Care Teams Senior Enlisted Advisor Relationship Specialty Start Date End Date Merry Santana PA [address] [facility] [address] [place] [address] PCP - General 09/03/21
--- OUTSIDE RECORDS SUMMARY | 2025-07-21 10:00 | XMS_ITS | Patient Health Record ---
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 Phone Molly Mckeon Unavailable [phone] Merry Santana Unavailable [phone] Allergies No Known Allergies Results Component Value [...] Interpretation: Performing Lab: Notes/Report: Test performed by [facility] [address] [place], [place] [address] [place] , [address], [place] [address] Byron Castrejon MD, Maintenance Custodian CLIA: [id number] Vitamin B12 >2000 232-1245 pg/mL P-Comprehensive Metabolic Pa kiley (CMP) Reviewed date:07/13/2025 01:19:39 PM Interpretation: Performing Lab: Notes/Report: Test performed by [facility] [address] [place] [address] , [address], [place] [address] Byron Castrejon MD, Maintenance Custodian CLIA: [id number] Sodium 144 135-145 mmol/L Potassium 3.3 3.5-5.3 [...] Interpretation: Performing Lab: Notes/Report: Test performed by [facility], [address] , [address], [place] [address] Byron Castrejon MD, Maintenance Custodian CLIA: [id number] Cholesterol 204 <200 mg/dL Triglycerides 206 <150 [...] Interpretation: Performing Lab: Notes/Report: Test performed by [facility] [address] [place], [place] [address] [place] , [place] [address] Byrno Castrejon MD, Maintenance Custodian CLIA: [id number] TSH reflex to FT4 1.76 0.43-5.25 mU/L P-Uric Acid Reviewed date:07/13/2025 01:19:39 PM Interpretation: Performing Lab: Notes/Report: Test performed by [facility] [address] [place] [address] , [place] [address] Byron Castrejon MD, Maintenance Custodian CLIA: [id number] Uric Acid 5.8 2.4-7.0 mg/dL P-Vitamin D 25-Hydroxy Reviewed date:07/13/2025 01:19:39 PM Interpretation: Performing Lab: Notes/Report: Test performed by [facility] [address] [place] [address] , [address], [place] [address] Byron Castrejon MD, Maintenance Custodian CLIA: [id number] Vitamin D 25-Hydroxy 72.6 30.0-100.0 ng/mL Interpretation of Vitamin D 25 OH: < 20 ng/mL - Deficiency 20 - 29 ng/mL - Insufficiency 30 - 100 ng/mL - Sufficiency > 100 ng/mL - Super-therapeutic- toxicity may occur above this level. Clinical correlation required. Reason For Referral No Information Medications Medication SIG (Take, Route, Frequency, Duration) Notes Start Date End Date Status Atorvastatin Calcium 10 MG 1 tablet Orally Once a day; Duration: 90 days Active Metoprolol Succinate ER 50 MG 1 tablet Orally Once a day; Duration: 90 days Pt needs appt Active Vitamin E 100 UNIT 1 tab(s) orally once a day; Duration: 30 day(s) Active Allopurinol 100 MG 2 tablets Orally Onc e a day; Duration: 90 days Active Ibuprofen 200 MG 4 tablet with food o r milk as needed Orally every 4 hours Active Lisinopril 20 MG 1 tablet Orally Once a day; Duration: 90 days Active amLODIPine Besylate 5 MG 1 tablet Orally Once a day; Duration: 90 days Active Lidoderm 5 % 1 patch remove after 12 hours Externally Once a day 07/20/2025 Active Potassium Chloride 20 MEQ 1 tablet with food Orally Once a day; Duration: 30 days 07/13/2025 Active Immunizations Vaccine Route Administration Date Status Comme nts COVID [address] Unknown 01/16/2021 Administered DT, 7 YEARS OR OLDER Unknown 06/02/2002 Administered Tetanus Tdap-Adacel (over 7yrs) IM Intramuscular 04/11/2022 Administered Social History Tobacco Use: Social History Observation Description Date Details (start date - stop date) Current Smoker NA - NA CURRENT TOBACCO USE: Question Answer Notes Are you a: current smoker How many cigarettes a day do you smoke? 5 or les s Problems Problem Type SNOMED Code ICD Code Onset Dates Problem Status W/U Status Risk Notes Problem Essential hypertension (82727508) HTN [Hypertension] (401.9) Active confirmed Problem Hypertension (22432483) HTN (hypertension) (I10) Active confirmed Problem Vitamin D deficiency (09379450) Vitamin D deficiency (E55.9) Active confirmed Problem Gout (35845084) Gout (M10.9) Active confirmed Problem Essential hypertension (80178956) Essential hypertension (I10) Active confirmed Problem Hypertriglyceridemia (541244995) Hypertriglyceridemia (E78.1) Active confirmed Problem Obese class I (288952625836528) BMI 33.0-33.9,adult (Z68.33) Active confirmed Problem Obesity due to exces s calories (626277980) Other obesity due to excess calories (E66.09) Active confirmed Problem Mixed hyperlipidemia (236327388) Mixed hyperlipidemia (E78.2) Active confirmed Problem Abnormal vaginal bleeding (984503223) DUB (dysfunctional uterine bleeding) (N93.8) Active confirmed Problem Obesity (608739606) Obesity (BMI 30-39.9) (E66.9) Active confirmed Problem Hypersomnia (62065424) Hypersomnia (G47.10) Active confirmed Problem Supraventricular premature beats (80660455) PAC (premature atrial contraction) (I49.1) Active confirmed Problem Obese class I (finding) (424178716395453) Obesity (BMI 30.0-34.9) (E66.9) Active confirmed Problem Obesity (771561957) Obesity (BMI 35.0-39.9 without comorbidity) (E66.9) Active confirmed Problem Gout (47800930) Acute gout of ri ght foot, unspecified cause (M10.9) Active confirmed Problem Chronic renal failur e syndrome (54641285) Chronic kidney disease, unspecified CKD stage (N18.9) Active confirmed Problem 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) Active confirmed Vital Signs Heart Rate 75 /min 06/28/2025 Blood pressure diastolic 80 mm Hg 06/28/2025 Height 67.50 in 06/28/2025 Blood pressure systolic 110 mm Hg 06/28/2025 Weight 213.8 lbs 06/28/2025 BMI 32.99 kg/m2 06/28/2025 Encounters Encounter Location Date Provider Diagnosis [facility] [facility] [address] [place] [id number] 10/28/2024 Merry Max Other obesity due to excess calories E66.09 ; BMI 33.0-33.9,adult Z68.33 ; Hyperuricemia E79.0 ; Essential hypertension I10 ; Chronic kidney disease, unspecified CKD stage N18.9 ; Vitamin D deficiency E55.9 ; Hypertriglyceridemia E78.1 and Mixed hyperlipidemia E78.2 [facility] [address] [place], [place] [id number] 06/28/2025 Merry Santana Essential hypertensi on I10 [...] encounter for Z12.31 and Tobacco use Z72.0 [facility] [address] [place], [place] [id number] 07/21/2025 Molly Mckeon [facility] [address] [facility] [address] [place], [place] [id number] 07/21/2024 Merry Donovanearnest [facility] [address] [facility] [address] [place], [place] [id number] 11/16/2024 Merry Crowdy BMI 33.0-33.9,adult Z68.33 [facility] [address] [facility] [address] [place], [place] [id number] 11/30/2024 Merry Crowdy BMI 33.0-33.9,adult Z68.33 [facility] [address] [facility] [address] [place] [id number] 12/01/2024 Merry Max [facility] [address] [facility] [address] [place] [id number] 12/06/2024 Molly Mckeon [facility] [address] [facility] [address] [place], [place] [id number] 12/08/2024 Merry Max [facility] [address] [place] [id number] 12/21/2024 Molly Mckeon [facility] [address] [place], [place] [id number] 03/21/2025 Molly Mckeon [facility] [address] [place] [id number] 06/20/2025 Merry Santana [facility] [address] [place], [place] [id number] 07/13/2025 Merry Santana [facility] [address] [place], [place] [id number] 07/19/2025 Merry Santana Assessments Encounter Date Diagnosis (ICD Code) Assessment Notes Treatment Notes Treatment Clinical Notes Section Notes 10/28/2024 Other obesity due to excess calories (ICD-10 - E66.09) 11/16/2024 BMI 33.0-33.9,adult (ICD-10 - Z68.33) 11/30/2024 BMI 33.0-33.9,adult (ICD-10 - Z68.33) 06/28/2025 Essential hypertensi on (ICD-10 - I10) Patient's medications have already been refilled. She will come in Thursday fasting for labs: CBC, CMP, TSH with reflex to Free T4, Uric acid, Lipids, Vit D 06/28/2025 Chronic kidney disea se, unspecified CKD stage (ICD-10 - N18.9) 06/28/2025 Hyperuricemia (ICD-1 0 - E79.0) 10/28/2024 BMI 33.0-33.9,adult (ICD-10 - Z68.33) 10/28/2024 Hyperuricemia (ICD-1 0 - E79.0) 10/28/2024 Essential hypertensi on (ICD-10 - I10) Patient's medications have already been refilled. She will come in Thursday fasting for labs: CBC, CMP, TSH with reflex to Free T4, Uric acid, Lipids, Vit D 06/28/2025 Other obesity due to excess calories (ICD-10 - E66.09) 06/28/2025 Vitamin D deficiency (ICD-10 - E55.9) 10/28/2024 Chronic kidney disea se, unspecified CKD stage (ICD-10 - N18.9) 10/28/2024 Vitamin D deficiency (ICD-10 - E55.9) 06/28/2025 Hypertriglyceridemia (ICD-10 - E78.1) 06/28/2025 Mixed hyperlipidemia (ICD-10 - E78.2) 10/28/2024 Hypertriglyceridemia (ICD-10 - E78.1) 10/28/2024 Mixed hyperlipidemia (ICD-10 - E78.2) 06/28/2025 Positive colorectal cancer screening using Cologuard test (ICD-10 - R19.5) 06/28/2025 Other fatigue (ICD-1 0 - R53.83) 06/28/2025 Osteoporosis screeni ng (ICD-10 - Z13.820) 06/28/2025 Screening mammogram, encounter for (ICD-10 - Z12.31) 06/28/2025 Tobacco use (ICD-10 - Z72.0) Plan Of Treatment Pending Test Test Name Order Date Bone density 06/28/2025 colonoscopy 06/28/2025 Mammogram 06/28/2025 CT SCAN : CHEST, LUNG CANCER SCREENING L OW DOSE 06/28/2025 Insurance Providers Payer Name Payer Address Payer Phone Subscriber Number Group Number Insured Name Patient Relationship to Insured Coverage Start Date Coverage End Date [employer] [address] [place] [address] [id number] Angelia Multani Self - patient is the insured Medical (General) History Medical History History ICD Code HYPERTENSION ARTHRITIS Gout Chronic Kidney Disease Surgical History Surgery Date(Month/Year) 1992
--- OUTSIDE RECORDS SUMMARY | 2025-07-21 10:00 | XMS_ITS | Clinical Summary ---
Author Organization [facility] Address 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
== END 2025-07-21 23:59 | disposition home or self-care (01) ==
LOC: RAD 09:55
PROVIDERS: PCP Physician Assistant; Visit Provider Physician Assistant
DX: Z12.31 Encounter for screening mammogram for malignant neoplasm of breast (principal); N63.20 Unspecified lump in the left breast, unspecified quadrant; R92.323 Mammographic fibroglandular density, bilateral breasts; Z13.820 Encounter for screening for osteoporosis; Z78.0 Asymptomatic menopausal state
CPT/HCPCS: 77063; 77067; 77080